=== PATIENT | male | born 1945 | race Caucasian/White ===

== ENCOUNTER 2022-07-10 13:48 | Inpatient (IN) | payer MEDICARE, OTHER ==
[2022-07-10] MEDS ORDERED: SODIUM CHLORIDE 0.9% 500 ML 500 ML IV ONE (14:38)
--- NOTE | 2022-07-10 14:48 | ED ---
General Adult HPI - General Chief complaint: Altered Mental Status Stated complaint: Mental Health,AMS Time Seen by Provider: 07/10/22 14:30 Source: patient, family, RN notes reviewed, old records reviewed Mode of arrival: ambulatory Limitations: altered mental status - History of Present Illness Initial comments: This is a 77-year-old male whose family brings the emergency department because they wanted him to get some placement or some assisted living because currently he is dangerous at home by himself he is becoming more more forgetful over the last 6 months and worse over the last few weeks. Patient had coded and full once about 3 weeks ago and since then his get from us is worse. Patient yesterday left the gas on his house and the whole house smelled like gas. Patient is forgetting to eat is also quite a bit of weight over the last year. Patient himself denies any problems but he does know he is getting more forgetful. Patient also has some urinary incontinence issues. Patient has no recent fever chills or cough patient has no recent chest pain difficult breathing shortness of breath. Patient has no nausea vomiting or diarrhea. Patient denies any abdominal pain. - Related Data Allergies Allergy/AdvReac Type Severity Reaction Status Date / Time No Known Allergies Allergy Verified 07/10/22 14:01 Review of Systems ROS Statement: Those systems with pertinent positive or pertinent negative responses have been documented in the HPI. ROS Other: All systems not noted in ROS Statement are negative. Past Medical History Past Medical History: Hypertension History of Any Multi-Drug Resistant Organisms: None Reported Additional Past Surgical History / Comment(s): right knee replacement, Past Psychological History: No Psychological Hx Reported Smoking Status: Former smoker Past Alcohol Use History: Occasional Past Drug Use History: None Reported General Exam - General Exam Comments Initial Comments: GENERAL: Patient is well-developed and well-nourished. Patient is nontoxic and well- hydrated and is in no acute distress. ENT: Neck is soft and supple. No significant lymphadenopathy is noted. Oropharynx is clear. Moist mucous membranes. Neck has full range of motion without eliciting any pain. EYES: The sclera were anicteric and conjunctiva were pink and moist. Extraocular movements were intact and pupils were equal round and reactive to light. Eyelids were unremarkable. PULMONARY: Unlabored respirations. Good breath sounds bilaterally. No audible rales rhonchi or wheezing was noted. CARDIOVASCULAR: There is a regular rate and rhythm without any murmurs gallops or rubs. ABDOMEN: Soft and nontender with normal bowel sounds. No palpable organomegaly was noted. There is no palpable pulsatile mass. SKIN: Skin is clear with no lesions or rashes and otherwise unremarkable. NEUROLOGIC: Patient is alert and oriented 2. Cranial nerves II through XII are grossly intact. Motor and sensory are also intact. Normal speech, volume and content. Symmetrical smile. MUSCULOSKELETAL: Normal extremities with adequate strength and full range of motion. No lower extremity swelling or edema. No calf tenderness. LYMPHATICS: No significant lymphadenopathy is noted PSYCHIATRIC: Normal psychiatric evaluation. Limitations: altered mental status Course Vital Signs 07/10/22 07/10/22 07/10/22 13:53 15:24 16:00 Temperature 97.9 F Pulse Rate 89 67 82 Respiratory 18 17 17 Rate Blood Pressure 158/79 118/68 129/79 O2 Sat by Pulse 98 99 99 Oximetry 07/10/22 16:59 Temperature Pulse Rate 85 Respiratory 18 Rate Blood Pressure 132/93 O2 Sat by Pulse 99 Oximetry Medical Decision Making - Medical Decision Making EKG was interpreted by myself. EKG shows sinus rhythm at 73 bpm WI interval 200 nitro's is 91 QT interval 357 QTC is 383 per patient's EKG shows no ST segment elevation or depression. Was pt. sent in by a medical professional or institution? @ -No Did you speak to anyone other than the patient for history? @ -I spoke with family members to get most of the history Did you review nursing and triage notes? @ -I agree with the nursing triage notes Were old charts reviewed? @ -None Differential Diagnosis? @ -Differential Altered Mental Status: Hypoglycemia, DKA, hypercapnia, ETOH, overdose, CO poisoning, trauma, myxedema coma, HTN encephalopathy, infection, encephalitis, psychosis, intercranial hemorrhage, hepatic encephalopathy, meningitis, CVA, this is not meant to be an all-inclusive list EKG interpreted by me (3pts min.)? @ -As above X-rays interpreted by me (1pt min.)? @ -Chest x-ray shows no acute abnormality it was interpreted by myself CT interpreted by me (1pt min.)? @ -CT of the brain was interpreted by myself did show signs of normal pressure hydrocephalus. U/S interpreted by me (1pt. min.)? @ -No What testing was considered but not performed? (CT, X-rays, U/S, labs)? Why? @ -No What meds were considered but not given? Why? @ -No Did you discuss the management of the patient with other professionals? @ -I spoke with sound physician's agreed to admit the patient to the patient wrote orders I consult neurology Did you reconcile home meds? @ -No Was smoking cessation discussed for >3mins.? @ -No Was critical care preformed (if so, how long)? @ -No Were there social determinants of health that impacted care today? How? (Homelessness, low income, unemployed, alcoholism, drug addiction, transportation, low edu. Level, literacy, decrease access to med. care, [facility], rehab)? @ -No Was there de-escalation of care discussed even if they declined? (Discuss DNR or withdrawal of care, Hospice)? @ -No What co-morbidities impacted this encounter? (DM, HTN, Smoking, COPD, CAD, Cancer, CVA, Hep., AIDS, mental health diagnosis, sleep apnea, morbid obesity)? @ -No Was patient admitted / discharged? @ -Patient will be admitted for normal pressure hydrocephalus. I spoke with sound physician's agreed to admit the patient admitted the patient I consult the neurology. Drug Therapy requiring intensive monitoring for toxicity (Heparin, Nitro, Insulin, Cardizem)? @ -No Were any procedures done? @ -No Diagnosis/symptom? @ -Normal pressure hydrocephalus Acute, or Chronic, or Acute on Chronic? @ -Acute on chronic Uncomplicated (without systemic symptoms) or Complicated (systemic symptoms)? @ -No Side effects of treatment? @ -No Exacerbation, Progression, or Severe Exacerbation] @ -No Poses a threat to life or bodily function? @ -No - Lab Data Result diagrams: 07/10/22 14:51 07/10/22 14:51 Lab Results 07/10/22 07/10/22 07/10/22 Range/Units 14:51 14:51 14:51 WBC 6.6 (3.8-10.6) k/uL RBC 4.17 L (4.30-5.90) m/uL Hgb 13.1 (13.0-17.5) gm/dL Hct 38.0 L (39.0-53.0) % MCV 91.1 (80.0-100.0) fL MCH 31.5 (25.0-35.0) pg MCHC 34.6 (31.0-37.0) g/dL RDW 12.7 (11.5-15.5) % Plt Count 204 (150-450) k/uL MPV 9.3 Neutrophils % 64 % Lymphocytes % 25 % Monocytes % 5 % Eosinophils % 3 % Basophils % 1 % Neutrophils # 4.2 (1.3-7.7) k/uL Lymphocytes # 1.7 (1.0-4.8) k/uL Monocytes # 0.3 (0-1.0) k/uL Eosinophils # 0.2 (0-0.7) k/uL Basophils # 0.1 (0-0.2) k/uL PT 10.4 (9.0-12.0) sec INR 1.0 (<1.2) APTT 23.7 (22.0-30.0) sec Sodium (137-145) mmol/L Potassium (3.5-5.1) mmol/L Chloride (98-107) mmol/L Carbon Dioxide (22-30) mmol/L Anion Gap mmol/L BUN (9-20) mg/dL Creatinine (0.66-1.25) mg/dL Est GFR (CKD-EPI)AfAm (>60 ml/min/1.73 sqM) Est GFR (CKD-EPI)NonAf (>60 ml/min/1.73 sqM) Glucose (74-99) mg/dL POC Glucose (mg/dL) (70-110) mg/dL POC Glu Supervisor Wet End ID Calcium (8.4-10.2) mg/dL Total Bilirubin (0.2-1.3) mg/dL AST (17-59) U/L ALT (4-49) U/L Alkaline Phosphatase (38-126) U/L Troponin I (0.000-0.034) ng/mL Total Protein (6.3-8.2) g/dL Albumin (3.5-5.0) g/dL Urine Color Light Yellow Urine Appearance Clear (Clear) Urine pH 5.5 (5.0-8.0) Ur Specific [place] 1.010 (1.001-1.035) Urine Protein Negative (Negative) Urine Glucose (UA) Negative (Negative) Urine Ketones Negative (Negative) Urine Blood Negative (Negative) Urine Nitrite Negative (Negative) Urine Bilirubin Negative (Negative) Urine Urobilinogen <2.0 (<2.0) mg/dL Ur Leukocyte Esterase Negative (Negative) Urine Opiates Screen Not Detected (NotDetected) Ur Oxycodone Screen Not Detected (NotDetected) Urine Methadone Screen Not Detected (NotDetected) Ur Propoxyphene Screen Not Detected (NotDetected) Ur Barbiturates Screen Not Detected (NotDetected) U Tricyclic Antidepress Not Detected (NotDetected) Ur Phencyclidine Scrn Not Detected (NotDetected) Ur Amphetamines Screen Not Detected (NotDetected) U Methamphetamines Scrn Not Detected (NotDetected) U Benzodiazepines Scrn Not Detected (NotDetected) Urine Cocaine Screen Not Detected (NotDetected) U Marijuana (THC) Screen Not Detected (NotDetected) 07/10/22 07/10/22 07/10/22 Range/Units 14:51 14:51 15:21 WBC (3.8-10.6) k/uL RBC (4.30-5.90) m/uL Hgb (13.0-17.5) gm/dL Hct (39.0-53.0) % MCV (80.0-100.0) fL MCH (25.0-35.0) pg MCHC (31.0-37.0) g/dL RDW (11.5-15.5) % Plt Count (150-450) k/uL MPV Neutrophils % % Lymphocytes % % Monocytes % % Eosinophils % % Basophils % % Neutrophils # (1.3-7.7) k/uL Lymphocytes # (1.0-4.8) k/uL Monocytes # (0-1.0) k/uL Eosinophils # (0-0.7) k/uL Basophils # (0-0.2) k/uL PT (9.0-12.0) sec INR (<1.2) APTT (22.0-30.0) sec Sodium 139 (137-145) mmol/L Potassium 4.1 (3.5-5.1) mmol/L Chloride 104 (98-107) mmol/L Carbon Dioxide 28 (22-30) mmol/L Anion Gap 7 mmol/L BUN 22 H (9-20) mg/dL Creatinine 0.83 (0.66-1.25) mg/dL Est GFR (CKD-EPI)AfAm >90 (>60 ml/min/1.73 sqM) Est GFR (CKD-EPI)NonAf 84 (>60 ml/min/1.73 sqM) Glucose 95 (74-99) mg/dL POC Glucose (mg/dL) 95 (70-110) mg/dL POC Glu Supervisor Wet End ID Cassandra Irene Calcium 9.3 (8.4-10.2) mg/dL Total Bilirubin 0.8 (0.2-1.3) mg/dL AST 33 (17-59) U/L ALT 25 (4-49) U/L Alkaline Phosphatase 86 (38-126) U/L Troponin I <0.012 (0.000-0.034) ng/mL Total Protein 6.4 (6.3-8.2) g/dL Albumin 3.8 (3.5-5.0) g/dL Urine Color Urine Appearance (Clear) Urine pH (5.0-8.0) Ur Specific [place] (1.001-1.035) Urine Protein (Negative) Urine Glucose (UA) (Negative) Urine Ketones (Negative) Urine Blood (Negative) Urine Nitrite (Negative) Urine Bilirubin (Negative) Urine Urobilinogen (<2.0) mg/dL Ur Leukocyte Esterase (Negative) Urine Opiates Screen (NotDetected) Ur Oxycodone Screen (NotDetected) Urine Methadone Screen (NotDetected) Ur Propoxyphene Screen (NotDetected) Ur Barbiturates Screen (NotDetected) U Tricyclic Antidepress (NotDetected) Ur Phencyclidine Scrn (NotDetected) Ur Amphetamines Screen (NotDetected) U Methamphetamines Scrn (NotDetected) U Benzodiazepines Scrn (NotDetected) Urine Cocaine Screen (NotDetected) U Marijuana (THC) Screen (NotDetected) Disposition Clinical Impression: Normal pressure hydrocephalus Disposition: ADMITTED IP TO THIS HOSP Referrals: Javan Silverman MD [REFERRING] - 1-2 days Time of Disposition: 17:26
[2022-07-10 15:02] LABS: Basophils # (A) 0.1 k/uL (0-0.2); Basophils % (A) 1 %; Eosinophils # (A) 0.2 k/uL (0-0.7); Eosinophils % (A) 3 %; HGB 13.1 gm/dL (13.0-17.5); Lymphocytes # (A) 1.7 k/uL (1.0-4.8); Lymphocytes % (A) 25 %; MCH 31.5 pg (25.0-35.0); MCHC 34.6 g/dL (31.0-37.0); MCV 91.1 fL (80.0-100.0); Mean Platelet Volume 9.3; Monocytes # (A) 0.3 k/uL (0-1.0); Monocytes % (A) 5 %; Neutrophils # (A) 4.2 k/uL (1.3-7.7); Neutrophils % (A) 64 %; Platelet Count 204 k/uL (150-450); RBC 4.17 m/uL (4.30-5.90); RDW 12.7 % (11.5-15.5); WBC 6.6 k/uL (3.8-10.6)
[2022-07-10 15:11] LABS: ALT 25 U/L (4-49); AST 33 U/L (17-59); African American GFR (CKD) >90 (>60 ml/min/1.73 sqM); Albumin 3.8 g/dL (3.5-5.0); Alkaline Phosphatase 86 U/L (38-126); Anion Gap 7 mmol/L; Appearance,Urine Clear (Clear); Bilirubin,Urine Negative (Negative); Blood Urea Nitrogen 22 mg/dL (9-20); Blood,Urine Negative (Negative); Calcium 9.3 mg/dL (8.4-10.2); Carbon Dioxide 28 mmol/L (22-30); Chloride 104 mmol/L (98-107); Color,Urine Light Yellow; Glucose 95 mg/dL (74-99); Glucose,Urine (UA) Negative (Negative); Ketones,Urine Negative (Negative); Leukocyte Esterase,Urine Negative (Negative); Nitrite,Urine Negative (Negative); Non-African American GFR(CKD) 84 (>60 ml/min/1.73 sqM); PH, Urine 5.5 (5.0-8.0); Potassium 4.1 mmol/L (3.5-5.1); Protein,Urine Negative (Negative); Sodium 139 mmol/L (137-145); Total Bilirubin 0.8 mg/dL (0.2-1.3); Total Protein 6.4 g/dL (6.3-8.2); Urobilinogen,Urine <2.0 mg/dL (<2.0)
--- NOTE | 2022-07-10 15:14 | XR ---
EXAMINATION TYPE: XR chest 2V DATE OF EXAM: 07/10/2022 COMPARISON: NONE TECHNIQUE: PA and lateral views submitted. HISTORY: Altered mental status FINDINGS: The lungs are clear and there is no pneumothorax, pleural effusion, or focal pneumonia. Hypertrophi c degenerative changes spine. Atherosclerotic changes aorta. Calcification along the right paratrache al line may be related to calcified. IMPRESSION: 1. No acute process. Correlate for COPD.
[2022-07-10 15:16] LABS: Partial Thromboplastin Time 23.7 sec (22.0-30.0); Prothrombin Time 10.4 sec (9.0-12.0)
[2022-07-10 15:17] LABS: Amphetamine Screen,Urine Not Detected (NotDetected); Barbiturate Screen,Urine Not Detected (NotDetected); Benzodiazepines Screen,Urine Not Detected (NotDetected); Cocaine Screen,Urine Not Detected (NotDetected); Methadone Screen, Urine Not Detected (NotDetected); Opiate Screen,Urine Not Detected (NotDetected); Oxycodone Screen, Urine Not Detected (NotDetected); Phencyclidine Screen,Urine Not Detected (NotDetected); Tricyclic Antidepressant,Urine Not Detected (NotDetected); Urn Cannabinoid Scrn Not Detected (NotDetected)
[2022-07-10 15:22] LABS: Glucose,Whole Blood 95 mg/dL (70-110)
--- NOTE | 2022-07-10 15:27 | CT ---
EXAMINATION TYPE: CT brain wo con DATE OF EXAM: 07/10/2022 HISTORY: AMS, confusion, memory loss CT DLP: 1158.4 mGycm. Automated Exposure Control for Dose Reduction was Utilized. TECHNIQUE: CT scan of the head is performed without contrast. COMPARISON: None. FINDINGS: There is no acute intracranial hemorrhage or midline shift identified. There is mild to m oderate diffuse ventricular and sulcal prominence with ventricular prominence slightly out of proport ion to the degree of sulcal effacement. There is mild low-attenuation in the periventricular white m atter consistent with chronic small vessel ischemic change. Nasal septum is deviated to right of mid line. Scleral calcification medial right globe is seen. Paranasal sinuses are clear. IMPRESSION: No acute intracranial hemorrhage or midline shift. There is mild to moderate diffuse ag e-related cerebral atrophy and mild chronic small vessel ischemic change noted. Possible mild underl rogelio normal pressure hydrocephalus. Correlate clinically. Correlation with old outside CT or MRI woul d be beneficial to assess for change.
[2022-07-10] MEDS ORDERED: SODIUM CHLORIDE 0.9% 1,000 ML IV ONE (17:27)
[2022-07-10] MEDS ORDERED: CALCIUM CARBONATE 500 MG CHEWABLE PO PRN (19:15)
[2022-07-10] MEDS ORDERED: NALOXONE 0.4 MG/ML 1 ML VIAL IV PRN (19:15)
[2022-07-10] MEDS ORDERED: ONDANSETRON 4 MG/2 ML VIAL IVP PRN (19:15)
[2022-07-10] MEDS ORDERED: MELATONIN 3 MG TABLET PO PRN (19:15)
--- NOTE | 2022-07-10 19:23 | P.HPIM ---
History of Present Illness H&P Date: 07/10/22 Patient is a 69-year-old male with PMH of hypertension, family history of Alzheimer's disease that presents the ED after being brought by his family for inability to take care of his ADLs and IADLs. Family states that patient lives alone. Over the past month his mentation has been getting worse. Apparently, he had COVID-19 3 weeks ago and has been progressively deteriorating with regard to his mentation since then. Family noted that patient had left the gas on in his house. Patient also refuses to eat 1 by himself. His girlfriend has mentioned that he had 2 falls recently without head trauma. Family also reports urinary incontinence. Patient himself has no complaints. He denies any headache, lower extremity edema, nausea or vomiting, fever or chills, cough, chest pain, shortness of breath, palpitations, changes in urination or bowel habits. No changes in appetite or weight. He denies any dizziness, numbness/weakness/tingling of the extremities. In the ED, his vital signs are stable. CBC was relatively benign. INR was 1. CMP showed BUN of 22. Initial troponin was negative. Urinalysis negative. UDS negative. CT brain showed mild to moderate age-related cerebral atrophy, possible mild underlying normal pressure hydrocephalus. Chest x-ray was negative. Patient is admitted for placement. Pertinent positives and negatives as discussed in HPI, a complete review of systems was performed and all other systems are negative. General: non toxic, no distress, appears at stated age Derm: warm, dry Head: atraumatic, normocephalic, symmetric Eyes: EOMI, no lid lag, anicteric sclera Mouth: no lip lesion, mucus membranes moist Cardiovascular: S1S2 reg, no murmur, positive posterior tibial pulse bilateral, Lungs: CTA bilateral, no rhonchi, no rales , no accessory muscle use Abdominal: soft, nontender to palpation, no guarding, no appreciable organomegaly Ext: no gross muscle atrophy, no edema, no contractures Neuro: CN II-XI grossly intact, no focal neuro deficits Psych: Pleasantly confused #Failure to thrive #Dementia #Normal pressure hydrocephalus PT and OT will be consulted for further management of this patient. student services rep and case management on board. Neurology consult. Fall precautions. Advanced neurochecks. Check reversible labs - TSH, B12, Folic acid Chronic conditions: #Hypertension BP 122/66. Restart Lisinopril. DVT prophylaxis: SCDs Discussed with: Patient, ED physician, family Anticipated discharge: 1-[address]: [facility] vs assisted living A total of 35 minutes was spent on the care of this complex patient more than 50% of the time was spent in counseling and care coordination. Patient's son is the decision maker. Patient would like to be NO CODE. Past Medical History Past Medical History: Hypertension History of Any Multi-Drug Resistant Organisms: None Reported Additional Past Surgical History / Comment(s): right knee replacement, Past Psychological History: No Psychological Hx Reported Smoking Status: Former smoker Past Alcohol Use History: Occasional Past Drug Use History: None Reported Medications and Allergies Home Medications Medication Instructions Recorded Confirmed Type Aspirin EC [Ecotrin Low Dose] 81 mg PO DAILY 07/10/22 07/10/22 History Bromfenac Sodium [Prolensa] 1 drop LEFT EYE DIRECTED 07/10/22 07/10/22 History Cholecalciferol [Vitamin D3 (25 25 mcg PO DAILY 07/10/22 07/10/22 History Mcg = 1000 Iu)] Ofloxacin 0.3% Ophth Soln [Ocuflox 1 drop LEFT EYE DIRECTED 07/10/22 07/10/22 History Ophth Soln] lisinopriL [Zestril] 20 mg PO DAILY 07/10/22 07/10/22 History Allergies Allergy/AdvReac Type Severity Reaction Status Date / Time No Known Allergies Allergy Verified 07/10/22 17:17 Physical Exam Vitals: Vital Signs Temp Pulse Resp BP Pulse Ox 07/10/22 18:20 81 17 122/66 98 07/10/22 16:59 85 18 132/93 99 07/10/22 16:00 82 17 129/79 99 07/10/22 15:24 67 17 118/68 99 07/10/22 13:53 97.9 F 89 18 158/79 98 Intake and Output 07/10/22 07/10/22 07/10/22 06:59 14:59 22:59 Other: Weight 72.575 kg Results CBC & Chem 7: 07/10/22 14:51 07/10/22 14:51 Labs: Abnormal Lab Results - Last 24 Hours (Table) 07/10/22 07/10/22 Range/Units 14:51 14:51 RBC 4.17 L (4.30-5.90) m/uL Hct 38.0 L (39.0-53.0) % BUN 22 H (9-20) mg/dL
[2022-07-11] MEDS ORDERED: LORazepam 2 MG/ML INJ IV STA (03:55)
[2022-07-11] MEDS ORDERED: QUEtiapine 25 MG TAB PO ONE (04:00)
[2022-07-11 08:36] LABS: Basophils # (A) 0.06 X 10*3/uL (0.00-0.10); Basophils % (A) 0.9 %; Eosinophils # (A) 0.46 X 10*3/uL (0.04-0.35); HCT 33.3 % (39.6-50.0); HGB 11.2 g/dL (13.0-17.0); Immature Grans, Automated 0.2 %; Lymphocytes # (A) 2.44 X 10*3/uL (0.90-5.00); Lymphocytes % (A) 36.9 %; MCH 31.1 pg (27.0-32.0); MCHC 33.6 g/dL (32.0-37.0); MCV 92.5 fL (80.0-97.0); Mean Platelet Volume 11.8 fL (9.5-12.2); Monocytes # (A) 0.44 X 10*3/uL (0.20-1.00); Monocytes % (A) 6.7 %; NRBC Per 100 WBC 0 /100 WBCS (0.0-0.0); Neutrophils % (A) 48.3 %; Platelet Count 191 X 10*3/uL (140-440); RDW 13.1 % (11.5-14.5); WBC 6.61 X 10*3/uL (4.50-10.00)
[2022-07-11] MEDS: lisinopriL 20 MG TAB PO SCH (08:38)
[2022-07-11] MEDS: ASPIRIN 81 MG PO SCH (08:38)
[2022-07-11] MEDS: CHOLECALCIFEROL 25 MCG (1000 IU) TABLET PO SCH (08:38)
[2022-07-11 09:23] LABS: African American GFR (CKD) 99.2 (60.0-200.0); Blood Urea Nitrogen 23.2 mg/dL (9.0-27.0); Carbon Dioxide 25.8 mmol/L (20.0-27.5); Chloride 108 mmol/L (96-109); Glucose 100 mg/dL (70-110); Non-African American GFR(CKD) 85.6 (60.0-200.0); Potassium 4.1 mmol/L (3.5-5.5); Sodium 142 mmol/L (135-145)
[2022-07-11 10:07] LABS: Vitamin B12 <150.0 pg/mL (200.0-944.0)
--- NOTE | 2022-07-11 12:21 | P.CNNES ---
History of Present Illness Consult date: 07/11/22 Requesting physician: Paul Conway Reason for Consult: normal pressure hydrocephalus History of Present Illness: This is a 77-year-old gentleman presented emergency department because of worsening confusion. Most of the history is obtained from the patient's family members (daughter and son are at bedside). 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 They stated that the patient had 2 incidents of turn on the gas and leaving it on and the house smelled like gas in which they had to evacuate him. Seems that he had a recent episode of leaving the gas on in his house and he had an episode in the around time of 2021. Patient is a having more over short-term memory loss. He is also having epi sodes of falls and the urinary incontinence for the last 1-3 month period. He shuffles when he walks. No focal weakness. She denies of any headache. Patient refuses to use a walker or cane. Patient resides by himself. Patient has hearing aids and he has lost that for at least the past 1 week. Also patient has cataract of both eyes and he needs surgery. No history of seizures. Patient socially drinks alcohol. Denies tobacco use or any illicit drug use. Some of the workup during this hospital visit consisted of: Vitamin B12 was less than 150 which is deficient. Normal is 200 08/16/1944. Serum folate is 8.20 and a normal supposed to be 4.4-31 TSH is 2.60. Ammonia is less than 9. Sodium, glucose, calcium, AST and ALT is within normal limits. Urinalysis is negative for urinary tract infection Urine drug screen is not detected CT of the head is reported as no acute intracranial hemorrhage or midline shift. There is mild to moderate diffuse age-related cerebral atrophy and mild chronic small vessel ischemic changes noted. Possible mild underlying normal pressure hydrocephalus. Correlate clinically. Correlation with old outside CT or MRI would be beneficial to assess for change. I personally reviewed the CT of the head and I agree with the finding. I feel the patient does have generalized atrophy but I feel the ventricles seems the mildly dilated at least in severity compared to the atrophy. Review of Systems Review of system: The 12 point system was reviewed and apparent positive and negative per HPI. Past Medical History Past Medical History: Hypertension Additional Past Medical History / Comment(s): Increased forgetfulness, urinary incontinence, covid and influenza about 3-5 weeks ago. History of Any Multi-Drug Resistant Organisms: None Reported Past Surgical History: Joint Replacement Additional Past Surgical History / Comment(s): right knee replacement, Past Anesthesia/Blood Transfusion Reactions: No Reported Reaction Smoking Status: Never smoker - Past Family History Mother Family Medical History: Dementia Father Family Medical History: Dementia Medications and Allergies Home Medications Medication Instructions Recorded Confirmed Type Aspirin EC [Ecotrin Low Dose] 81 mg PO DAILY 07/10/22 07/10/22 History Bromfenac Sodium [Prolensa] 1 drop LEFT EYE DIRECTED 07/10/22 07/10/22 History Cholecalciferol [Vitamin D3 (25 25 mcg PO DAILY 07/10/22 07/10/22 History Mcg = 1000 Iu)] Ofloxacin 0.3% Ophth Soln [Ocuflox 1 drop LEFT EYE DIRECTED 07/10/22 07/10/22 History Ophth Soln] lisinopriL [Zestril] 20 mg PO DAILY 07/10/22 07/10/22 History Allergies Allergy/AdvReac Type Severity Reaction Status Date / Time No Known Allergies Allergy Verified 07/10/22 17:17 Physical Examination - Vital Signs Vital Signs: Vital Signs Temp Pulse Resp BP Pulse Ox 07/11/22 08:00 95 18 165/95 99 07/11/22 04:41 71 18 95 07/11/22 02:34 73 16 129/80 97 07/11/22 00:13 85 18 135/84 98 07/10/22 21:28 98.3 F 91 18 114/79 97 07/10/22 18:20 81 17 122/66 98 07/10/22 16:59 85 18 132/93 99 07/10/22 16:00 82 17 129/79 99 07/10/22 15:24 67 17 118/68 99 07/10/22 13:53 97.9 F 89 18 158/79 98 Intake and Output 07/10/22 07/11/22 07/11/22 22:59 06:59 14:59 Other: Weight 72.575 kg GENERAL: The patient is lying in bed and is not in acute distress. CHEST: The heart rate is regular rate rhythm. No murmurs to auscultation. LUNG: Clear to auscultation bilaterally no wheezing noted throughout. Not labored breathing. ABDOMEN/GI: Bowel sounds present in all 4 quadrants. No tenderness to palpation throughout. NEUROLOGICAL: Higher mental function: The patient is awake, alert, oriented to self, place and time. Patient is following simple commands. No aphasia and no neglect. Cranial nerves: The pupils are round, equal and reactive to light and accommodation. Visual thorpe are full to confrontation throughout. Extraocular movement is intact no nystagmus is noted. Facial sensation is normal to touch throughout. The facial strength is normal throughout. Hearing is severely decrease bilaterally to hand rub (does not have hearing aids). Tongue is midline and moved [id number] without any difficulty. No dysarthria is noted. Shoulder shrug is normal bilaterally. Motor: Gait is minimally walking slow but able to walk indepently and not swaying one way or other. No shuffling or wide base gait note. The strength is 5 over 5 throughout. Normal tone and bulk. Cerebellum: Normal finger to nose bilaterally. Sensation: Sensation is normal to touch throughout. Reflexes (right/left): 2+ throughout. Plantars are mute bilaterally. 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 Also has vitamin B12 deficiency that causes dementia. Vitamin B12 deficiency Bilateral Cataract Severe hearing loss and has hearing aids Plan: For his vitamin B12 deficiency, placed on vitamin B12 a thousand micrograms IM for 3 days and after that by mouth. Recommend reevaluating vitamin B12 level within 2-3 weeks I consulted anesthesiology team for large volume tap for likely suspicion of normal pressure hydrocephalus and then we'll assess his gait and function afterwards. If he does show improvement recommend [employer] shunt as an outpatient and to be seen by neurosurgeon for that I ordered MRI of the brain with and without to rule out any intracranial mass/lesion Ordered the hemoglobin A1c to assess if he is diabetic which can lead to perform neuropathy and falls as well as. Recommend a detailed neuropsych evaluation for his memory as an outpatient PT and OT are consulted Patient was counseled on using a cane or walker as outpatient (since he refuses to use it and has falls). We'll defer the rest of the medical management to primary team Patient to move forward with his neurology evaluation as outpatient with Dr. Fernando on 07/27/22 Plan was discussed with the patient and his family members (daughter and son). Thank you for the consultation I have spent a total of 35 minutes for his care. Going over history, reviewed labs and imaging and went over imaging with patient and family members as well plan. Time with Patient: Greater than 30
[2022-07-11] MEDS: CYANOCOBALAMIN 1,000 MCG/ML 1 ML VIAL IM SCH (13:05)
[2022-07-11] MEDS ORDERED: LORazepam 2 MG/ML INJ IV PRN (14:27)
--- NOTE | 2022-07-11 15:14 | P.PN ---
Subjective Progress Note Date: 07/11/22 Patient is a 69-year-old male with PMH of hypertension, family history of Alzheimer's disease that presents the ED after being brought by his family for inability to take care of his ADLs and IADLs. Family states that patient lives alone. Over the past month his mentation has been getting worse. Apparently, he had COVID-19 3 weeks ago and has been progressively deteriorating with regard to his mentation since then. Family noted that patient had left the gas on in his house. Patient also refuses to eat 1 by himself. His girlfriend has mentioned that he had 2 falls recently without head trauma. Family also reports urinary incontinence. Patient himself has no complaints. He denies any headac he, lower extremity edema, nausea or vomiting, fever or chills, cough, chest pain, shortness of breath, palpitations, changes in urination or bowel habits. No changes in appetite or weight. He denies any dizziness, numbness/weakness/tingling of the extremities. In the ED, his vital signs are stable. CBC was relatively benign. INR was 1. CMP showed BUN of 22. Initial troponin was negative. Urinalysis negative. UDS negative. CT brain showed mild to moderate age-related cerebral atrophy, possible mild underlying normal pressure hydrocephalus. Chest x-ray was negative. Patient is admitted for placement. Patient was seen and examined. Seroquel and Ativan given for agitation yesterday . Son at bedside. Patient denies any complaints. General: non toxic, no distress, appears at stated age Derm: warm, dry Head: atraumatic, normocephalic, symmetric Eyes: EOMI, no lid lag, anicteric sclera Mouth: no lip lesion, mucus membranes moist Cardiovascular: S1S2 reg, no murmur Lungs: CTA bilateral, no rhonchi, no rales , no accessory muscle use Ext: no gross muscle atrophy, no edema, no contractures Neuro: no focal neuro deficits Psych: Pleasantly confused #Failure to thrive #Dementia #Normal pressure hydrocephalus #B12 deficiency PT and OT will be consulted for further management of this patient. director agricultural services and case management on board. Neurology recommendations appreciated, plans for MRI brain, anesthesia consult for large volume LP. Fall precautions. Advanced neurochecks. TSH and Folic acid within normal limits. Agree with Vitamin B12 replacement ordered by Neurology. Chronic conditions: #Hypertension BP 103/65. Restart Lisinopril. Objective - Vital Signs Vital signs: Vital Signs Temp 97.7 F 07/11/22 13:03 Pulse 87 07/11/22 13:03 Resp 16 07/11/22 13:03 BP 103/65 07/11/22 13:03 Pulse Ox 97 07/11/22 13:03 FiO2 Intake & Output 07/10/22 07/11/22 07/11/22 18:59 06:59 18:59 Weight 72.575 kg 72.575 kg - Labs CBC & Chem 7: 07/11/22 05:32 07/11/22 05:32 Labs: Abnormal Lab Results - Last 24 Hours (Table) 07/11/22 07/11/22 Range/Units 05:32 05:32 RBC 3.60 L (4.40-5.60) X 10*6/uL Hgb 11.2 L (13.0-17.0) g/dL Hct 33.3 L (39.6-50.0) % Eosinophils # 0.46 H (0.04-0.35) X 10*3/uL Anion Gap 8.20 L (10.00-18.00) mmol/L BUN/Creatinine Ratio 29.00 H (12.00-20.00) Ratio Vitamin B12 <150.0 L (200.0-944.0) pg/mL
[2022-07-11] MEDS ORDERED: QUEtiapine 25 MG TAB PO PRN (17:21)
[2022-07-11] MEDS: LORazepam 2 MG/ML INJ IV PRN (17:32)
--- NOTE | 2022-07-11 20:36 | XR ---
EXAMINATION TYPE: XR abdomen 2V DATE OF EXAM: 07/11/2022 CLINICAL HISTORY: Pre-MRI study. TECHNIQUE: Supine and upright views of the abdomen are obtained. COMPARISON: None. FINDINGS: Scattered gas is seen in non-distended small bowel loops. Gas and fecal material is seen in non-distended colon. Moderate fecal prominence in the rectum. Mild diffuse colonic fecal prominenc e. There is no visceromegaly, pneumoperitoneum, or abnormal calcification appreciated. The lung bas es are clear. Disc space narrowing and spurring in the lower lumbar spine. IMPRESSION: Overall nonobstructive bowel gas pattern. No suspicious metallic foreign body identified to prevent MRI study.
[2022-07-12] MEDS: lisinopriL 20 MG TAB PO SCH (08:29)
[2022-07-12] MEDS: CHOLECALCIFEROL 25 MCG (1000 IU) TABLET PO SCH (08:29)
[2022-07-12] MEDS: LORazepam 2 MG/ML INJ IV PRN (08:56)
[2022-07-12] MEDS: LACTATED RINGERS 1,000 ML IV SCH (10:10)
[2022-07-12 11:19] VITALS: BMI 22.3
--- NOTE | 2022-07-12 11:21 | P.PCN ---
Date of Procedure: 07/12/22 Description of Procedure: Procedure: 1. Lumbar puncture for CSF collection PREOPERATIVE DIAGNOSIS: Altered mental status, and normal pressure hydrocephalus POSTOPERATIVE DIAGNOSIS: Altered mental status, and normal pressure hydrocephalus SURGEON: Alina Ibarra ANESTHESIA: Local with 1% lidocaine, and IV sedation : None EBL: None. Specimen removed: 30 mL of CSF collected in 4 tubes PROCEDURE INDICATION: The patient had history of normal pressure hydrocephalus with altered mental status. Consulted for lumbar puncture for 30 mL of CSF collection. PROCEDURE DESCRIPTION: The patient was seen and identified. Risks, benefits, complications, and alternatives were discussed with the patient. The patient agreed to proceed with the procedure and signed the consent, and vital signs were stable. Patient was taken to the procedure area, and time out was completed. The patient was placed in left lateral position on procedure. . The lumbosacral area was prepped and draped in the usual sterile fashion. Critical pause was taken. Vital signs were closely monitored during the procedure. Posterior superior iliac crest landmarks was identified . The midline lumbar space also identified. Approximately at the level of L4-L5 interspinous space, skin and deeper tissues were localized with 3 mL of 1% lidocaine. Using a 22 gauge 3.5 spinal needle entered into subarachnoid space, with 1 attempt. Clear CSF came out of the spinal needle. 7-8 mL of CSF fluid collected in each tube 4. A total of 30 mL CSF collected . Needle was withdrawn intact, skin was cleansed, and bandages were applied. COMPLICATIONS: None. DISPOSITION / PLANS: The patient was placed in a supine position and transferred to his room in a stable condition for observation. The patient was reexamined prior transfer to his room..
[2022-07-12] MEDS: ASPIRIN 81 MG PO SCH (11:53)
[2022-07-12 11:57] LABS: Glucose,Whole Blood 103 mg/dL (70-110)
--- NOTE | 2022-07-12 16:13 | P.PN ---
Subjective Progress Note Date: 07/12/21 The patient is seen at bedside and it seems he had large volume CSF today (30cc) by anesthesiology team. But upon evaluating the patient later today, he was agitated and confused. According to the nurse, he has be agitated since overnight and has received benzo ordered by primary team. He has been attempting to get out of bed and aggressive. He has been picking in the air stating he is cleaning the dust. Objective - Vital Signs Vital signs: Vital Signs Temp 97 F L 07/12/22 12:33 Pulse 91 07/12/22 12:33 Resp 16 07/12/22 12:33 BP 128/80 07/12/22 12:33 Pulse Ox 97 07/12/22 12:33 FiO2 Intake & Output 07/11/22 07/12/22 07/12/22 18:59 06:59 18:59 Intake Total 450 Output Total 900 500 Balance -900 -500 450 Weight 72.575 kg 72.575 kg Intake: IV 450 Output: Urine 900 500 Other: Voiding Method External Catheter # Voids 1 3 - Exam GENERAL: The patient is lying in bed and is not in acute distress. He is chacorta tated. NEUROLOGICAL: Limited because of his condition. Higher mental function: The patient is awake, alert, oriented to self only. He was picking air with hands. He could not name his girlfriend's name and called her by his ex-'s name. Patient is following few simple commands. Cranial nerves: The pupils are round, equal and reactive to light. His is tracking throughout the room. No facial weakness. No dysarthria. Motor: The strength is hard to assess individual muscles. Is lifting all extremities above gravity. Cerebellum: Unable to assess. Sensation: Unable to assess. Some of the workup during this hospital visit consisted of: Vitamin B12 was less than 150 which is deficient. Normal is 200 08/16/1944. Serum folate is 8.20 and a normal supposed to be 4.4-31 TSH is 2.60. Ammonia is less than 9. Sodium, glucose, calcium, AST and ALT is within normal limits. Urinalysis is negative for urinary tract infection Urine drug screen is not detected CT of the head is reported as no acute intracranial hemorrhage or midline shift. There is mild to moderate diffuse age-related cerebral atrophy and mild chronic small vessel ischemic changes noted. Possible mild underlying normal pressure hydrocephalus. Correlate clinically. Correlation with old outside CT or MRI would be beneficial to assess for change. I personally reviewed the CT of the head and I agree with the finding. I feel the patient does have generalized atrophy but I feel the ventricles seems the mildly dilated at least in severity compared to the atrophy. 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 Also has vitamin B12 deficiency that causes dementia. Delerium due to hospital induced and medication (benzo) can aggravate in elderly Vitamin B12 deficiency Bilateral Cataract Severe hearing loss and has hearing aids Plan: For his vitamin B12 deficiency, placed on vitamin B12 a thousand micrograms IM for total of 3 days (today is day 2) and after that by mouth. Recommend reevaluating vitamin B12 level within 2-3 weeks He had large volume tap (30cc) but is severely delerious and could not examine him properly. I recommend Normal pressure hydrocephalus work-up as outpatient. Please avoid benzo as much as possible since can cause worsening agitation in elderly. I started him on Seroquel 25mg qhs and if needed can be on 50mg qhs for psychosis/agitation. Pending MRI Brain and to rule out any intracranial mass/lesion and scheduled tomorrow, but if unable to be done because of his cooperation then can be co nsidered as outpatient. Ordered routine EEG for his confusion. Recommend a detailed neuropsych evaluation for his memory as an outpatient PT and OT are consulted Patient was counseled on using a cane or walker as outpatient (since he refuses to use it and has falls). We'll defer the rest of the medical management to primary team Patient to move forward with his neurology evaluation as outpatient with Dr. Fernando on 07/27/22 Plan was discussed with his family members (daughter) and girlfriend who are at bedside. Time with Patient: Less than 30
--- NOTE | 2022-07-12 17:17 | P.PN ---
Subjective Progress Note Date: 07/12/22 Patient is a 69-year-old male with PMH of hypertension, family history of Alzheimer's disease that presents the ED after being brought by his family for inability to take care of his ADLs and IADLs. Family states that patient lives alone. Over the past month his mentation has been getting worse. Apparently, he had COVID-19 3 weeks ago and has been progressively deteriorating with regard to his mentation since then. Family noted that patient had left the gas on in his house. Patient also refuses to eat 1 by himself. His girlfriend has mentioned that he had 2 falls recently without head trauma. Family also reports urinary incontinence. Patient himself has no complaints. He denies any headac he, lower extremity edema, nausea or vomiting, fever or chills, cough, chest pain, shortness of breath, palpitations, changes in urination or bowel habits. No changes in appetite or weight. He denies any dizziness, numbness/weakness/tingling of the extremities. In the ED, his vital signs are stable. CBC was relatively benign. INR was 1. CMP showed BUN of 22. Initial troponin was negative. Urinalysis negative. UDS negative. CT brain showed mild to moderate age-related cerebral atrophy, possible mild underlying normal pressure hydrocephalus. Chest x-ray was negative. Patient is admitted for placement. Patient was seen and examined. Seroquel and Ativan given for agitation yesterday . Patient appears more agitated than yesterday. LP performed today. General: non toxic, agitatated, appears at stated age Derm: warm, dry Head: atraumatic, normocephalic, symmetric Eyes: EOMI, no lid lag, anicteric sclera Mouth: no lip lesion, mucus membranes moist Cardiovascular: S1S2 reg, no murmur Lungs: CTA bilateral, no rhonchi, no rales , no accessory muscle use Ext: no gross muscle atrophy, no edema, no contractures Neuro: no focal neuro deficits Psych: Confused and agitated #Failure to thrive #Dementia #Normal pressure hydrocephalus #B12 deficiency PT and OT will be consulted for further management of this patient. financial services education consultant and case management on board. Unable to get MRI brain due to mentation. Neurology recommendations appreciated, plans for MRI brain, anesthesia consult for large volume LP (which was done today). Fall precautions. Advanced neurochecks. TSH and Folic acid within normal limits. Agree with Vitamin B12 replacement ordered by Neurology. We will discontinue Ativan as it could be worsening his dementia. Continue Seroquel QHS. Sitter ordered for redirection. Chronic conditions: #Hypertension BP 128/80. Continue Lisinopril. Case discussed extensively with family regarding placement of the patient. They are looking into it. Patient is unsafe for discharge home. Objective - Vital Signs Vital signs: Vital Signs Temp 97 F L 07/12/22 12:33 Pulse 91 07/12/22 12:33 Resp 16 07/12/22 12:33 BP 128/80 07/12/22 12:33 Pulse Ox 97 07/12/22 12:33 FiO2 Intake & Output 07/11/22 07/12/22 07/12/22 18:59 06:59 18:59 Intake Total 450 Output Total 900 500 Balance -900 -500 450 Weight 72.575 kg 72.575 kg Intake: IV 450 Output: Urine 900 500 Other: Voiding Method External Catheter # Voids 1 3 - Labs CBC & Chem 7: 07/11/22 05:32 07/11/22 05:32
[2022-07-12] MEDS: QUEtiapine 25 MG TAB PO SCH (20:59)
[2022-07-13] MEDS: ASPIRIN 81 MG PO SCH (10:48)
[2022-07-13] MEDS: lisinopriL 20 MG TAB PO SCH (10:48)
[2022-07-13] MEDS: CHOLECALCIFEROL 25 MCG (1000 IU) TABLET PO SCH (10:48)
[2022-07-13] MEDS: CYANOCOBALAMIN 1,000 MCG/ML 1 ML VIAL IM SCH (10:48)
--- NOTE | 2022-07-13 10:52 | MR ---
EXAMINATION TYPE: MR brain wo con DATE OF EXAM: 07/13/2022 COMPARISON: CT 07/10/2022 HISTORY: Altered mental status CONTRAST: Performed utilizing 0 mL intravenous Gadavist gadolinium contrast. TECHNIQUE: Multiplanar, multiecho imaging on a 3.0 Ade magnet is performed through the brain. Stud y is performed within 24 hours of arrival to the hospital. The craniovertebral junction is normal. The pituitary is not well visualized. Diffusion-weighted imaging is performed. No abnormal hyperintensity is present to suggest an acute i ntracranial infarct or acute ischemic change. There is mild periventricular white matter hyperintensity. Microvascular ischemic change could be con sidered. Punctate hyper intensities are within the gutierrez radiata bilaterally. These are nonspecific and may be chronic white matter ischemic changes. Ventricles and sulci are very prominent for the patient age. No CSF flow void through the cerebral aq ueduct is evident. There is some mild rounding of the temporal horns. Normal pressure hydrocephalus i s not entirely excluded. IMPRESSIONS: 1. Ventricular prominence favors atrophy, however, consider normal pressure hydrocephalus. 2. Mild chronic appearing deep white matter changes.
[2022-07-13] MEDS: LACTATED RINGERS 1,000 ML IV SCH (11:00)
--- NOTE | 2022-07-13 15:11 | P.PN ---
Subjective Progress Note Date: 07/13/22 Patient is a 69-year-old male with PMH of hypertension, family history of Alzheimer's disease that presents the ED after being brought by his family for inability to take care of his ADLs and IADLs. Family states that patient lives alone. Over the past month his mentation has been getting worse. Apparently, he had COVID-19 3 weeks ago and has been progressively deteriorating with regard to his mentation since then. Family noted that patient had left the gas on in his house. Patient also refuses to eat 1 by himself. His girlfriend has mentioned that he had 2 falls recently without head trauma. Family also reports urinary incontinence. Patient himself has no complaints. He denies any headac he, lower extremity edema, nausea or vomiting, fever or chills, cough, chest pain, shortness of breath, palpitations, changes in urination or bowel habits. No changes in appetite or weight. He denies any dizziness, numbness/weakness/tingling of the extremities. In the ED, his vital signs are stable. CBC was relatively benign. INR was 1. CMP showed BUN of 22. Initial troponin was negative. Urinalysis negative. UDS negative. CT brain showed mild to moderate age-related cerebral atrophy, possible mild underlying normal pressure hydrocephalus. Chest x-ray was negative. Patient is admitted for placement. Patient was seen and examined. Patients mentation has significantly improved tod ay. Ativan was discontinued yesterday. He reports no complaints. Discussed with multiple family members in the patient room. General: non toxic, agitatated, appears at stated age Derm: warm, dry Head: atraumatic, normocephalic, symmetric Eyes: EOMI, no lid lag, anicteric sclera Mouth: no lip lesion, mucus membranes moist Cardiovascular: S1S2 reg, no murmur Lungs: CTA bilateral, no rhonchi, no rales , no accessory muscle use Ext: no gross muscle atrophy, no edema, no contractures Neuro: no focal neuro deficits Psych: Confused and agitated #Failure to thrive #Dementia #Normal pressure hydrocephalus #B12 deficiency PT and OT will be consulted for further management of this patient. manager support services and case management on board. MR brain shows ventricular prominence favoring atrophy, consider NPH. Neurology recommendations appreciated. Status post high-volume LP Fall precautions. Advanced neurochecks. TSH and Folic acid within normal limits. Agree with Vitamin B12 replacement ordered by Neurology. We will discontinue Ativan as it could be worsening his dementia. Continue Seroquel QHS. Sitter ordered for redirection. Chronic conditions: #Hypertension BP 124/70 Continue Lisinopril. Case discussed extensively with family regarding placement of the patient. Plans for SNF with insurance authorization. Patient is unsafe for discharge home. Objective - Vital Signs Vital signs: Vital Signs Temp 98.5 F 07/13/22 12:50 Pulse 50 L 07/13/22 12:50 Resp 17 07/13/22 12:50 BP 124/79 07/13/22 12:50 Pulse Ox 97 07/13/22 12:50 FiO2 Intake & Output 07/12/22 07/13/22 07/13/22 18:59 06:59 18:59 Intake Total 450 Balance 450 Weight 72.575 kg Intake: IV 450 Other: Voiding Method External Catheter External Catheter # Voids 3 3 1 - Labs CBC & Chem 7: 07/11/22 05:32 07/11/22 05:32
[2022-07-13] MEDS: KETOROLAC 15 MG/ML 1 ML VIAL IVP SCH (15:55)
--- NOTE | 2022-07-13 16:30 | P.PN ---
Subjective Progress Note Date: 07/13/22 The patient seen at bedside and according to the nursing staff he is doing much better today compared to yesterday. He is more cooperative and less agitated. Patient stated that he is doing well. Objective - Vital Signs Vital signs: Vital Signs Temp 98.5 F 07/13/22 12:50 Pulse 50 L 07/13/22 12:50 Resp 17 07/13/22 12:50 BP 124/79 07/13/22 12:50 Pulse Ox 97 07/13/22 12:50 FiO2 Intake & Output 07/12/22 07/13/22 07/13/22 18:59 06:59 18:59 Intake Total 450 Balance 450 Weight 72.575 kg Intake: IV 450 Other: Voiding Method External Catheter External Catheter # Voids 3 3 1 - Exam GENERAL: The patient is lying in bed and is not in acute distress. NEUROLOGICAL: Higher mental function: The patient was sleepy but was awakeable to voice. Is oriented to self, place and time. He is following simple commands. No aphasia and no neglect. Cranial nerves: The pupils are round, equal and reactive to light. Visual thorpe are full to confrontation throughout. Extraocular movement is intact no nystagmus is noted. The facial strength is normal throughout. No dysarthria is noted. Motor: Gait is deferred since not cooperative for it. The strength is lifting all extremities above gravity without focality. Normal tone and bulk. Cerebellum: Normal finger to nose bilaterally. Sensation: Sensation is normal to touch throughout. Reflexes (right/left): 2+ throughout. Plantars are mute bilaterally. Some of the workup during this hospital visit consisted of: Vitamin B12 was less than 150 which is deficient. Normal is 200 08/16/1944. Serum folate is 8.20 and a normal supposed to be 4.4-31 Ammonia level is less than 9 TSH is 2.60. Ammonia is less than 9. Sodium, glucose, calcium, AST and ALT is within normal limits. Urinalysis is negative for urinary tract infection Urine drug screen is not detected CT of the head is reported as no acute intracranial hemorrhage or midline shift. There is mild to moderate diffuse age-related cerebral atrophy and mild chronic small vessel ischemic changes noted. Possible mild underlying normal pressure hydrocephalus. Correlate clinically. Correlation with old outside CT or MRI would be beneficial to assess for change. I personally reviewed the CT of the head and I agree with the finding. I feel the patient does have generalized atrophy but I feel the ventricles seems the mildly dilated at least in severity compared to the atrophy. MRI the brain is reported as ventricular prominence favors atrophy however consider no pressure hydrocephalus. Mild chronic appearing deep white matter changes. - Labs CBC & Chem 7: 07/11/22 05:32 07/11/22 05:32 Assessment and Plan Assessment: Probable normal pressure hydrocephalus from clinical presentation (gait disturbance, memory loss and urinary incontinence and symptoms started at least 6 months with memory loss, falls) and radiographically appears more dilated ventricles compared to atrophy suggestive of NPH Cognitive impairement/dementia due to above. Also has vitamin B12 deficiency that causes dementia. Delirium due to hospital induced and medication (benzo) can aggravate in elderly---improved Vitamin B12 deficiency Bilateral Cataract Severe hearing loss and has hearing aids Plan: For his vitamin B12 deficiency, placed on vitamin B12 a thousand micrograms IM for total of 3 days (today is day 3) and after that by mouth. Recommend reevaluating vitamin B12 level within 2-3 weeks He had large volume tap (30cc) but is uncooperative for gait and could not examine him properly. Recommend Normal pressure hydrocephalus evaluation as outpatient. Please avoid benzo as much as possible since can cause worsening agitation in elderly. I started him on Seroquel 25mg qhs and if needed can be on 50mg qhs for psychosis/agitation. Pending routine EEG for his confusion. Recommend a detailed neuropsych evaluation for his memory as an outpatient PT and OT are consulted Patient was counseled on using a cane or walker as outpatient (since he refuses to use it and has falls). We'll defer the rest of the medical management to primary team Patient to move forward with his neurology evaluation as outpatient with Dr. Fernando on 07/27/22 Plan was discussed with his nurse. Time with Patient: Less than 30
[2022-07-13] MEDS: QUEtiapine 25 MG TAB PO SCH (20:23)
--- NOTE | 2022-07-13 21:06 | EEG ---
ELECTROENCEPHALOGRAM REPORT CLINICAL HISTORY: This is a 77-year-old gentleman with altered mental status. The video EEG is obtained to evaluate for seizure epileptiform activity. RELEVANT MEDICATION: Seroquel as well as the patient received 1 dose of Ativan. EEG TYPE: A routine 21-channel EEG is performed with video using the 10/20 electrode placement system. DESCRIPTION: Wakefulness is only obtained. During awake state, the background consists of low-to- moderate voltage of 6 to 7 hertz that is poorly modulated. There is no physiological sleep architecture seen. There is no focal slowing. There is mild diffuse myogenic artifact. Interictal and ictal is none. ACTIVATION PROCEDURE: Photic stimulation did not evoke a posterior driving response. There is no abnormality during photic stimulation. Hyperventilation is not performed. CLINICAL INTERPRETATION: This is an abnormal routine EEG. The background slowing is suggestive of mild encephalopathy. Otherwise, there is no focal slowing, epileptiform discharges, or seizure on the EEG. Clinical correlation is recommended. MMISIDORO / JENNIFERN: [id number] /
[2022-07-14] MEDS: KETOROLAC 15 MG/ML 1 ML VIAL IVP SCH ×4 (00:58→18:14)
[2022-07-14] MEDS: CHOLECALCIFEROL 25 MCG (1000 IU) TABLET PO SCH (09:58)
[2022-07-14] MEDS: ASPIRIN 81 MG PO SCH (09:58)
[2022-07-14] MEDS: LACTATED RINGERS 1,000 ML IV SCH (09:58)
[2022-07-14] MEDS: CYANOCOBALAMIN 500 MCG TAB PO SCH (09:58)
[2022-07-14] MEDS: lisinopriL 20 MG TAB PO SCH (09:58)
--- NOTE | 2022-07-14 14:25 | P.PN ---
Subjective Progress Note Date: 07/14/22 Patient is a 69-year-old male with PMH of hypertension, family history of Alzheimer's disease that presents the ED after being brought by his family for inability to take care of his ADLs and IADLs. Family states that patient lives alone. Over the past month his mentation has been getting worse. Apparently, he had COVID-19 3 weeks ago and has been progressively deteriorating with regard to his mentation since then. Family noted that patient had left the gas on in his house. Patient also refuses to eat 1 by himself. His girlfriend has mentioned that he had 2 falls recently without head trauma. Family also reports urinary incontinence. Patient himself has no complaints. He denies any headac he, lower extremity edema, nausea or vomiting, fever or chills, cough, chest pain, shortness of breath, palpitations, changes in urination or bowel habits. No changes in appetite or weight. He denies any dizziness, numbness/weakness/tingling of the extremities. In the ED, his vital signs are stable. CBC was relatively benign. INR was 1. CMP showed BUN of 22. Initial troponin was negative. Urinalysis negative. UDS negative. CT brain showed mild to moderate age-related cerebral atrophy, possible mild underlying normal pressure hydrocephalus. Chest x-ray was negative. Patient is admitted for placement. Her B12 was noted to be less than 150 which was replaced. TSH and folic acid within normal limits. Ammonia negative. MR brain showed ventricular prominence favoring atrophy, consider NPH. EEG showed mild encephalopathy. Neurology was consulted and recommended IR consultation for high-volume LP was performed on July 12. He was given intermittent doses of Ativan as needed for combativeness and to obtain MRI brain which was noted to worsen his delirium. Patient was started on Seroquel at bedtime for agitation. Patient was seen and examined. Patients mentation has significantly improved today. He has a sitter at bedside. General: non toxic, agitatated, appears at stated age Derm: warm, dry Head: atraumatic, normocephalic, symmetric Eyes: EOMI, no lid lag, anicteric sclera Mouth: no lip lesion, mucus membranes moist Cardiovascular: S1S2 reg, no murmur Lungs: CTA bilateral, no rhonchi, no rales , no accessory muscle use Ext: no gross muscle atrophy, no edema, no contractures Neuro: no focal neuro deficits Psych: Confused and agitated #Failure to thrive #Dementia #Normal pressure hydrocephalus #B12 deficiency PT and OT will be consulted for further management of this patient. cargo services coordinator and case management on board. MR brain shows ventricular prominence favoring atrophy, consider NPH. EEG shows mild encephalopathy. Neurology recommendations appreciated. Status post high-volume LP July 12, 30 mL removed Fall precautions. Advanced neurochecks. TSH and Folic acid within normal limits. Agree with Vitamin B12 replacement ordered by Neurology. We will discontinue Ativan as it could be worsening his dementia. Continue Seroquel QHS. Sitter ordered for redirection. Chronic conditions: #Hypertension BP 118/77 Continue Lisinopril. Case discussed extensively with family regarding placement of the patient. We will discontinue sitter on Saturday (only used for safety). Plans for SNF with insurance authorization. Patient is unsafe for discharge home. Objective - Vital Signs Vital signs: Vital Signs Temp 98.8 F 07/14/22 12:07 Pulse 74 07/14/22 12:07 Resp 16 07/14/22 12:07 BP 118/77 07/14/22 12:07 Pulse Ox 96 07/14/22 12:07 FiO2 Intake & Output 07/13/22 07/14/22 07/14/22 18:59 06:59 18:59 Intake Total 240 Output Total 500 Balance -260 Intake: Oral 240 Output: Urine 500 Other: Voiding Method External Catheter External Catheter External Catheter # Voids 1 2 3 - Labs CBC & Chem 7: 07/11/22 05:32 07/11/22 05:32
--- NOTE | 2022-07-14 14:49 | P.PN ---
Subjective Progress Note Date: 07/14/22 The patient seen at bedside and according to the nurse he is more cooperative less agitated. He has a sitter at bedside. Patient states that he is doing better. Objective - Vital Signs Vital signs: Vital Signs Temp 98.8 F 07/14/22 12:07 Pulse 74 07/14/22 12:07 Resp 16 07/14/22 12:07 BP 118/77 07/14/22 12:07 Pulse Ox 96 07/14/22 12:07 FiO2 Intake & Output 07/13/22 07/14/22 07/14/22 18:59 06:59 18:59 Intake Total 240 Output Total 500 Balance -260 Intake: Oral 240 Output: Urine 500 Other: Voiding Method External Catheter External Catheter External Catheter # Voids 1 2 3 - Exam GENERAL: The patient is lying in bed and is not in acute distress. NEUROLOGICAL: Higher mental function: The patient is awake, alert, oriented to self, place and time. He is following simple commands. No aphasia and no neglect. Cranial nerves: The pupils are round, equal and reactive to light. Visual thorpe are full to confrontation throughout. Extraocular movement is intact no nystagmus is noted. The facial strength is normal throughout. No dysarthria is noted. Motor: Gait is needed some assistance from sitting to standing and upon standing was able to walk on his own but somewhat slow. The strength is 5/5 t hroughout. Normal tone and bulk. Cerebellum: Normal finger to nose bilaterally. Sensation: Sensation is normal to touch throughout. Reflexes (right/left): 2+ throughout. Plantars are mute bilaterally. Some of the workup during this hospital visit consisted of: Vitamin B12 was less than 150 which is deficient. Normal is 200 08/16/1944. Serum folate is 8.20 and a normal supposed to be 4.4-31 Ammonia level is less than 9 TSH is 2.60. Ammonia is less than 9. Sodium, glucose, calcium, AST and ALT is within normal limits. Urinalysis is negative for urinary tract infection Urine drug screen is not detected CT of the head is reported as no acute intracranial hemorrhage or midline shift. There is mild to moderate diffuse age-related cerebral atrophy and mild chronic small vessel ischemic changes noted. Possible mild underlying normal pressure hydrocephalus. Correlate clinically. Correlation with old outside CT or MRI would be beneficial to assess for change. I personally reviewed the CT of the head and I agree with the finding. I feel the patient does have generalized atrophy but I feel the ventricles seems the mildly dilated at least in severity compared to the atrophy. MRI the brain is reported as ventricular prominence favors atrophy however consider no pressure hydrocephalus. Mild chronic appearing deep white matter changes. Routine EEG is abnormal. The background slowing suggestive of mild encephalopathy. Otherwise there is no focal slowing, epileptiform discharge or seizure on the EEG. - Labs CBC & Chem 7: 07/11/22 05:32 07/11/22 05:32 Assessment and Plan Assessment: Probable normal pressure hydrocephalus from clinical presentation (gait disturbance, memory loss and urinary incontinence and symptoms started at least 6 months with memory loss, falls) and radiographically appears more dilated ventricles compared to atrophy suggestive of NPH Cognitive impairement/dementia due to above. Also has vitamin B12 deficiency that causes dementia. Delirium due to hospital induced and medication (benzo) can aggravate in elderly---resolved. Vitamin B12 deficiency Bilateral Cataract Severe hearing loss and has hearing aids Plan: For his vitamin B12 deficiency, placed on vitamin B12 a thousand micrograms IM for total of 3 days which he completed and now on PO. Recommend reevaluating vitamin B12 level within 2-3 weeks He had large volume tap (30cc) on 07/12/22 but I did not feel his gait improved but limited since he was bed bound for couple days because of his confusion. His confusion has resolved to his initial presentation. Recommend Normal pressure hydrocephalus evaluation as outpatient. Please avoid benzo as much as possible since can cause worsening agitation in elderly. I started him on Seroquel 25mg qhs and if needed can be on 50mg qhs for psychosis/agitation. Recommend a detailed neuropsych evaluation for his memory as an outpatient PT and OT are consulted Patient was counseled on using a cane or walker as outpatient (since he refuses to use it and has falls). We'll defer the rest of the medical management to primary team Patient to move forward with his neurology evaluation as outpatient with Dr. Fernando on 07/27/22 Plan was discussed with his daughter (Gwen) and his nurse. There is no further neurological work-up. Will sign off. Please reconsult if needed. Time with Patient: Less than 30
[2022-07-14] MEDS: QUEtiapine 25 MG TAB PO SCH (20:13)
[2022-07-15] MEDS: KETOROLAC 15 MG/ML 1 ML VIAL IVP SCH ×5 (00:32→23:55)
[2022-07-15] MEDS: CHOLECALCIFEROL 25 MCG (1000 IU) TABLET PO SCH (08:54)
[2022-07-15] MEDS: LACTATED RINGERS 1,000 ML IV SCH (08:55)
[2022-07-15] MEDS: ASPIRIN 81 MG PO SCH (08:55)
[2022-07-15] MEDS: lisinopriL 20 MG TAB PO SCH (08:55)
[2022-07-15] MEDS: CYANOCOBALAMIN 500 MCG TAB PO SCH (08:55)
--- NOTE | 2022-07-15 13:19 | P.PN ---
Subjective Progress Note Date: 07/15/22 Patient is a 69-year-old male with PMH of hypertension, family history of Alzheimer's disease that presents the ED after being brought by his family for inability to take care of his ADLs and IADLs. Family states that patient lives alone. Over the past month his mentation has been getting worse. Apparently, he had COVID-19 3 weeks ago and has been progressively deteriorating with regard to his mentation since then. Family noted that patient had left the gas on in his house. Patient also refuses to eat 1 by himself. His girlfriend has mentioned that he had 2 falls recently without head trauma. Family also reports urinary incontinence. Patient himself has no complaints. He denies any headac he, lower extremity edema, nausea or vomiting, fever or chills, cough, chest pain, shortness of breath, palpitations, changes in urination or bowel habits. No changes in appetite or weight. He denies any dizziness, numbness/weakness/tingling of the extremities. In the ED, his vital signs are stable. CBC was relatively benign. INR was 1. CMP showed BUN of 22. Initial troponin was negative. Urinalysis negative. UDS negative. CT brain showed mild to moderate age-related cerebral atrophy, possible mild underlying normal pressure hydrocephalus. Chest x-ray was negative. Patient is admitted for placement. Her B12 was noted to be less than 150 which was replaced. TSH and folic acid within normal limits. Ammonia negative. MR brain showed ventricular prominence favoring atrophy, consider NPH. EEG showed mild encephalopathy. Neurology was consulted and recommended IR consultation for high-volume LP was performed on July 12. He was given intermittent doses of Ativan as needed for combativeness and to obtain MRI brain which was noted to worsen his delirium. Patient was started on Seroquel at bedtime for agitation. Patient was seen and examined. Patients mentation has significantly improved today. He has a sitter at bedside. General: non toxic, agitatated, appears at stated age Derm: warm, dry Head: atraumatic, normocephalic, symmetric Eyes: EOMI, no lid lag, anicteric sclera Mouth: no lip lesion, mucus membranes moist Cardiovascular: S1S2 reg, no murmur Lungs: CTA bilateral, no rhonchi, no rales , no accessory muscle use Ext: no gross muscle atrophy, no edema, no contractures Neuro: no focal neuro deficits Psych: Confused and agitated #Failure to thrive #Dementia with Delirium #Normal pressure hydrocephalus #B12 deficiency PT and OT will be consulted for further management of this patient. business services coordinator and case management on board. MR brain shows ventricular prominence favoring atrophy, consider NPH. EEG shows mild encephalopathy. Neurology recommendations appreciated. Status post high-volume LP July 12, 30 mL removed Fall precautions. Advanced neurochecks. TSH and Folic acid within normal limits. Agree with Vitamin B12 replacement ordered by Neurology. We will discontinue Ativan as it could be worsening his dementia. Continue Seroquel QHS. Sitter discontinued. Chronic conditions: #Hypertension BP 103/66 Continue Lisinopril. Case discussed extensively with family regarding placement of the patient. We will discontinue sitter today. Plans for SNF with insurance authorization. Patient is unsafe for discharge home. Objective - Vital Signs Vital signs: Vital Signs Temp 97.9 F 07/15/22 13:10 Pulse 71 07/15/22 13:10 Resp 16 07/15/22 13:10 BP 103/66 07/15/22 13:10 Pulse Ox 98 07/15/22 13:10 FiO2 Intake & Output 07/14/22 07/15/22 07/15/22 18:59 06:59 18:59 Intake Total 240 700 Output Total 500 500 Balance -260 700 -500 Intake: Oral 240 700 Output: Urine 500 500 Other: Voiding Method External Catheter External Catheter External Catheter # Voids 3 2 2 - Labs CBC & Chem 7: 07/11/22 05:32 07/11/22 05:32
[2022-07-15] MEDS: QUEtiapine 25 MG TAB PO SCH (20:25)
[2022-07-16] MEDS: KETOROLAC 15 MG/ML 1 ML VIAL IVP SCH ×2 (05:55→12:22)
[2022-07-16] MEDS: lisinopriL 20 MG TAB PO SCH (08:08)
[2022-07-16] MEDS: CHOLECALCIFEROL 25 MCG (1000 IU) TABLET PO SCH (08:08)
[2022-07-16] MEDS: CYANOCOBALAMIN 500 MCG TAB PO SCH (08:08)
[2022-07-16] MEDS: ASPIRIN 81 MG PO SCH (08:08)
[2022-07-16] MEDS: LACTATED RINGERS 1,000 ML IV SCH (12:31)
--- NOTE | 2022-07-16 16:16 | P.PN ---
Subjective Progress Note Date: 07/16/22 (Delayed charting seen at 10:30) Patient is a 69-year-old male with hypertension, urinary incontinence, and family history of Alzheimer's diseas who presented to the ED after being brought by his family for inability to take care of his ADLs and IADL. He had COVID-19 3 weeks ago and has been progressively deteriorating with regard to his mentation since then. In the emergency department his vital signs were stable. CBC was relatively benign. INR was 1. CMP showed BUN of 22. Initial troponin was negative. Urinalysis negative. UDS negative. CT brain showed mild to moderate age-related cerebral atrophy, possible mild underlying normal pressure hydrocephalus. Chest x-ray was negative. Patien was admitted for placement. Her B12 was noted to be less than 150 which was replaced. TSH and folic acid within normal limits. Ammonia negative. MR brain showed ventricular prominence favoring atrophy, consider NPH. EEG showed mild encephalopathy. Neurology was consulted and recommended IR consultation for high-volume LP was performed on July 12 which did not results in significant improvement and neuro recommended continue outpatietn follow-up for NPH. He was given intermittent doses of Ativan as needed for combativeness and to obtain MRI brain which was noted to worsen his delirium. Patient was started on Seroquel at bedtime for agitation. Continue to improve somewhat. Arrangements were made for custodial facility. female examined at bedside. He continues to be confused but he is pleasant and cooperative. He denies any pain or difficulty breathing. Last urinated he talks about how his house looks. General: nontoxic, no distress, appears at stated age Derm: warm, dry Head: atraumatic, normocephalic, symmetric Eyes: EOMI, no lid lag, anicteric sclera Mouth: no lip lesion, mucus membranes moist Cardiovascular: S1S2 reg, no murmur, positive posterior tibial pulse bilateral, Lungs: Coarse breath sounds bilateral, no rhonchi, no rales , no accessory muscle use Abdominal: soft, nontender to palpation, no guarding, no appreciable organomegaly Ext: no gross muscle atrophy, no edema, no contractures Neuro: CN II-XI grossly intact, no focal neuro deficits Psych: Alert, oriented to self, blunted affect Assessment/plan: Dementia with acute delirium Failure to thrive Possible normal pressure hydrocephalus B12 deficiency Hypertension Debility -Currently awaiting custodial facility. Large-volume paracentesis was completed on July 12 without significant improvement. Neurology has signed off. Patient is no longer requiring when necessary benzodiazepines as has been optimized with Seroquel at night. Medications reviewed we'll continue with B12, vitamin D, lisinopril, melatonin, and Seroquel. All prior lab work reviewed by myself from this hospital stay including CBC, BMP, A1c, troponin, B12, folate, TSH, ammonia, UA, UDS. CT brain, MRI brain, EEG reports were reviewed. Anticipate discharge once insurance authorization obtained. Active Medications Generic Name Dose Route Start Last Admin Trade Name Freq PRN Reason Stop Dose Admin Acetaminophen 650 mg 07/10/22 19:15 Acetaminophen Tab 325 Mg Tab PO Q6HR PRN Mild Pain or Fever > 100.5 Aspirin 81 mg 07/11/22 09:00 07/16/22 08:08 Aspirin 81 Mg PO 81 mg DAILY BESSIE Administration Calcium Carbonate/Glycine 1,000 mg 07/10/22 19:15 Calcium Carbonate 500 Mg Chewable PO Q4HR PRN Dyspepsia Cholecalciferol 25 mcg 07/11/22 09:00 07/16/22 08:08 Cholecalciferol 25 Mcg (1000 Iu) Tablet PO 25 mcg DAILY BESSIE Administration Cyanocobalamin 1,000 mcg 07/14/22 09:00 07/16/22 08:08 Cyanocobalamin 500 Mcg Tab PO 1,000 mcg DAILY BESSIE Administration Lactated Ringer's 1,000 mls @ 20 mls/hr 07/12/22 10:15 07/16/22 12:31 Lactated Ringers IV Not Given .Q24H BESSIE Lisinopril 20 mg 07/11/22 09:00 07/16/22 08:08 Lisinopril 20 Mg Tab PO 20 mg DAILY BESSIE Administration Melatonin 3 mg 07/10/22 19:15 07/10/22 22:15 Melatonin 3 Mg Tablet PO 3 mg HS PRN Administration Insomnia Naloxone HCl 0.2 mg 07/10/22 19:15 Naloxone 0.4 Mg/Ml 1 Ml Vial IV Q2M PRN Opioid Reversal Ondansetron HCl 4 mg 07/10/22 19:15 Ondansetron 4 Mg/2 Ml Vial IVP Q8HR PRN Nausea And Vomiting Quetiapine Fumarate 25 mg 07/12/22 21:00 07/15/22 20:25 Quetiapine 25 Mg Tab PO 25 mg HS BESSIE Administration Objective - Vital Signs Vital signs: Vital Signs Temp 97.4 F L 07/16/22 12:34 Pulse 80 07/16/22 12:34 Resp 16 07/16/22 12:34 BP 138/76 07/16/22 12:34 Pulse Ox 99 07/16/22 12:34 FiO2 Intake & Output 07/15/22 07/16/22 07/16/22 18:59 06:59 18:59 Intake Total 240 0 Output Total 500 Balance -260 0 Intake: Intake, IV Titration 0 Amount Lactated Ringers 1,000 ml 0 @ 20 mls/hr IV .Q24H BESSIE Rx#:[id number] Oral 240 Output: Urine 500 Other: Voiding Method External Catheter # Voids 4 2 - Labs CBC & Chem 7: 07/11/22 05:32 07/11/22 05:32
[2022-07-16] MEDS: ACETAMINOPHEN TAB 325 MG TAB PO PRN (20:05)
[2022-07-16] MEDS: QUEtiapine 25 MG TAB PO SCH (20:05)
[2022-07-17 07:52] VITALS: RESP 18
[2022-07-17] MEDS: CYANOCOBALAMIN 500 MCG TAB PO SCH (08:05)
[2022-07-17] MEDS: ASPIRIN 81 MG PO SCH (08:05)
[2022-07-17] MEDS: ACETAMINOPHEN TAB 325 MG TAB PO PRN (08:05)
[2022-07-17] MEDS: LACTATED RINGERS 1,000 ML IV SCH (08:06)
[2022-07-17] MEDS: CHOLECALCIFEROL 25 MCG (1000 IU) TABLET PO SCH (08:06)
[2022-07-17] MEDS: lisinopriL 20 MG TAB PO SCH (08:06)
[2022-07-17 12:36] VITALS: BP 129/79; PULSE 87; TEMP 97.3
--- NOTE | 2022-07-17 13:12 | P.DS ---
Providers Date of admission: 07/16/22 11:10 Expected date of discharge: 07/17/22 Attending physician: Rolan Hawkins DO Consults: 07/10/22 17:27 Consult Physician Urgent Consulting Provider: Gordon Aaron Consult Reason/Comments: Normal pressure hydrocephalus Do you want consulting provider notified?: Yes Primary care physician: Physician Nonstaff Hospital Course: Discharge Diagnosis: Dementia with acute delirium Failure to thrive Possible normal pressure hydrocephalus B12 deficiency Hypertension Debility Hospital Course: Patient is a 77-year-old male with hypertension, urinary incontinence, and family history of Alzheimer's diseas who presented to the ED after being brought by his family for inability to take care of his ADLs and IADL. He had COVID-19 3 weeks ago and has been progressively deteriorating with regard to his mentation since then. In the emergency department his vital signs were stable. CBC was relatively benign. INR was 1. CMP showed BUN of 22. Initial troponin was negative. Urinalysis negative. UDS negative. CT brain showed mild to moderate age-related cerebral atrophy, possible mild underlying normal pressure hydrocephalus. Chest x-ray was negative. Patien was admitted for work-up for altered mentation and weakness. His B12 was noted to be less than 150 which was replaced. TSH and folic acid within normal limits. Ammonia was negative. MR brain showed ventricular prominence favoring atrophy, consider NPH. EEG showed mild encephalopathy. Neurology was consulted and recommended IR consultation for high-volume LP was performed on July 12 which did not results in significant improvement and neuro recommended continue outpatietn follow-up for NPH. He was given intermittent doses of Ativan as needed for combativeness and to obtain MRI brain which was noted to worsen his delirium. Patient was started on Seroquel at bedtime for agitation. Continue to improve somewhat. Arrangements were made for [facility]. Follow-up: B12 level in 4 weeks, Recommend neuropych testing after discharge, Neurology follow-up for further NPH evaluation. Patient seen and examined at bedside. Regarding the hospital. He denies any chest pain or shortness of breath. He will be discharged. He is more alert today and is aware that it is 2022, that he is in [place], he does think the month is June. Vital signs reviewed and stable. General: nontoxic, no distress, appears at stated age Derm: warm, dry Head: atraumatic, normocephalic, symmetric Eyes: EOMI, no lid lag, anicteric sclera Mouth: no lip lesion, mucus membranes moist Cardiovascular: S1S2 reg, no murmur, positive posterior tibial pulse bilateral, Lungs: CTA bilateral, no rhonchi, no rales , no accessory muscle use Abdominal: soft, nontender to palpation, no guarding, no appreciable organomegaly Ext: no gross muscle atrophy, no edema, no contractures Neuro: CN II-XI grossly intact, no focal neuro deficits Psych: Alert, oriented, appropriate affect A total of 35 minutes of time were spent preparing this complex discharge summary. Patient was discharged on 07/17/22. Plan - Discharge Summary Discharge Rx Participant: No New Discharge Prescriptions: New Melatonin 3 mg PO HS PRN tab PRN Reason: Insomnia Cyanocobalamin [Vitamin B-12] 1,000 mcg PO DAILY tab QUEtiapine [SEROquel] 25 mg PO HS tab Continue Cholecalciferol [Vitamin D3 (25 Mcg = 1000 Iu)] 25 mcg PO DAILY Ofloxacin 0.3% Ophth Soln [Ocuflox Ophth Soln] 1 drop LEFT EYE DIRECTED lisinopriL [Zestril] 20 mg PO DAILY Aspirin EC [Ecotrin Low Dose] 81 mg PO DAILY Bromfenac Sodium [Prolensa Ophth Soln] 1 drop LEFT EYE DIRECTED Discharge Medication List Aspirin EC [Ecotrin Low Dose] 81 mg PO DAILY 07/10/22 [History] Bromfenac Sodium [Prolensa Ophth Soln] 1 drop LEFT EYE DIRECTED 07/10/22 [History] Cholecalciferol [Vitamin D3 (25 Mcg = 1000 Iu)] 25 mcg PO DAILY 07/10/22 [History] Ofloxacin 0.3% Ophth Soln [Ocuflox Ophth Soln] 1 drop LEFT EYE DIRECTED 07/10/22 [History] lisinopriL [Zestril] 20 mg PO DAILY 07/10/22 [History] Cyanocobalamin [Vitamin B-12] 1,000 mcg PO DAILY tab 07/17/22 [Rx] Melatonin 3 mg PO HS PRN tab 07/17/22 [Rx] QUEtiapine [SEROquel] 25 mg PO HS tab 07/17/22 [Rx] Follow up Appointment(s)/Referral(s): Javan Silverman MD [REFERRING] - 1-2 days Chelsey Fuentes MD [REFERRING] - 1 Week Activity/Diet/Wound Care/Special Instructions: Activity: as tolerated, fall precautions Diet: heart healthy Special Instructions: B12 level in 4 weeks [facility] Schedule a Neuropsycholgy Evaluation: Please call to schedule. Discharge/Stand Alone Forms: Anes Pain/[facility] Instructions Discharge Disposition: TRANSFER TO SNF/ECF
== END 2022-07-17 16:55 | DRG 57 ==
LOC: EC 13:48 → 6NMEDSUR 17:30 → 5NMEDONC 07-11 11:48 → OBSVTOIN 07-16 11:10
PROVIDERS: ADMIT Internal Medicine; ATTEND Internal Medicine
PROC: 009U3ZX Drainage of Spinal Canal, Percutaneous Approach, Diagnostic (ICD-10-PCS; principal; 2022-07-12 11:30)
DX: G91.2 (Idiopathic) normal pressure hydrocephalus (principal); G93.49 Other encephalopathy; F05 Delirium due to known physiological condition; F02.811 Dementia in other diseases classified elsewhere, unspecified severity, with agitation; R62.7 Adult failure to thrive; I10 Essential (primary) hypertension; G47.00 Insomnia, unspecified; E53.8 Deficiency of other specified B group vitamins; H91.93 Unspecified hearing loss, bilateral; T42.4X5A Adverse effect of benzodiazepines, initial encounter; R29.6 Repeated falls; Z74.1 Need for assistance with personal care; Z96.651 Presence of right artificial knee joint; Z86.16 Personal history of COVID-19; Z82.0 Family history of epilepsy and other diseases of the nervous system; Z87.891 Personal history of nicotine dependence; Z79.82 Long term (current) use of aspirin; Z79.899 Other long term (current) drug therapy; Z97.4 Presence of external hearing-aid; Z91.81 History of falling
CPT/HCPCS: 36415; 62329; 70450; 70551; 71046; 74019; 80048; 80053; 80306; 81003; 82140; 82607; 82746; 83036; 84443; 84484; 85025; 85610; 85730; 93005; 94760; 95816; 96361; 96372; 96374; 99285

== ENCOUNTER 2022-07-22 14:31 | Observation (INO) | payer MEDICARE, OTHER ==
[2022-07-22 15:11] LABS: Glucose,Whole Blood 115 mg/dL (70-110)
[2022-07-22] MEDS ORDERED: SODIUM CHLORIDE 0.9% 1,000 ML IV STA (15:19)
[2022-07-22] MEDS ORDERED: SODIUM CHLORIDE 0.9% 500 ML 500 ML IV ONE (15:19)
[2022-07-22 15:54] LABS: Partial Thromboplastin Time 22.4 sec (22.0-30.0); Prothrombin Time 10.2 sec (9.0-12.0)
[2022-07-22 16:02] LABS: ALT 63 U/L (4-49); AST 151 U/L (17-59); African American GFR (CKD) >90 (>60 ml/min/1.73 sqM); Albumin 3.4 g/dL (3.5-5.0); Alkaline Phosphatase 86 U/L (38-126); Anion Gap 5 mmol/L; Blood Urea Nitrogen 35 mg/dL (9-20); Calcium 9.1 mg/dL (8.4-10.2); Carbon Dioxide 30 mmol/L (22-30); Chloride 104 mmol/L (98-107); Glucose 117 mg/dL (74-99); Non-African American GFR(CKD) >90 (>60 ml/min/1.73 sqM); Potassium 3.9 mmol/L (3.5-5.1); Sodium 139 mmol/L (137-145); Total Bilirubin 0.9 mg/dL (0.2-1.3); Total Protein 6.2 g/dL (6.3-8.2)
--- NOTE | 2022-07-22 16:03 | XR ---
EXAMINATION TYPE: XR chest 2V DATE OF EXAM: 07/22/2022 COMPARISON: 07/10/2022 HISTORY: Altered mental status TECHNIQUE: 2 views FINDINGS: Thoracic aorta is atheromatous. Lungs are clear of consolidation. There are no hilar masses . The bony thorax is intact. IMPRESSION: No active cardiopulmonary disease. No change.
--- NOTE | 2022-07-22 16:07 | CT ---
EXAMINATION TYPE: CT brain wo con DATE OF EXAM: 07/22/2022 COMPARISON: 07/10/2022 HISTORY: AMS, weakness CT DLP: 1188.4 mGycm Automated exposure control for dose reduction was used. There is cerebral cortical atrophy. There is enlargement of the ventricles. There is no mass effect o r midline shift. No sign of intracranial hemorrhage. There is mild hypodensity in the periventricular white matter. The calvarium is intact. Skull base is intact. IMPRESSION: Cerebral atrophy. Moderate hydrocephalus. No acute intracranial abnormality. No change.
[2022-07-22 16:09] LABS: Basophils % (A) 0 %; Eosinophils % (A) 0 %; HCT 36.6 % (39.0-53.0); HGB 12.2 gm/dL (13.0-17.5); Lymphocytes # (A) 1.7 k/uL (1.0-4.8); Lymphocytes % (A) 16 %; MCH 29.8 pg (25.0-35.0); MCHC 33.3 g/dL (31.0-37.0); MCV 89.4 fL (80.0-100.0); Mean Platelet Volume 9.2; Monocytes # (A) 0.7 k/uL (0-1.0); Monocytes % (A) 7 %; Neutrophils # (A) 7.7 k/uL (1.3-7.7); Neutrophils % (A) 75 %; Platelet Count 252 k/uL (150-450); RDW 12.8 % (11.5-15.5); WBC 10.2 k/uL (3.8-10.6)
--- NOTE | 2022-07-22 16:46 | ED ---
General Adult HPI - General Chief complaint: Altered Mental Status Stated complaint: AMS Time Seen by Provider: 07/22/22 15:07 Source: patient, EMS Mode of arrival: EMS Limitations: altered mental status (There appears to be dementia versus delirium) - History of Present Illness Initial comments: This patient is 77-year-old man sent here from the [facility] reports here on to have evaluation after he is not appearing to be his usual self. The patient had been in the hospital with admission to rule out normal pressure hydrocephalus, as she had been having unsteady gait, mental status changes. He did have a lumbar puncture while in the hospital but that did not improve his symptoms and therefore it is thought that in pH was less likely the cause and he was not going to have shunt placement. The [facility] days now and over the past day they noted that he has not been wanting to walk. He is been resistive to care, and he is not seeming like his usual self. Patient's family subsequent only arrived and stated that he is been having an increase in cough as well. When I interviewed the patient, he was denying all symptoms other than having a cough. Onset/Timin -: days(s) - Related Data Home Medications Medication Instructions Recorded Confirmed Aspirin EC [Ecotrin Low Dose] 81 mg PO DAILY 07/10/22 07/22/22 Cholecalciferol [Vitamin D3 (25 25 mcg PO DAILY 07/10/22 07/22/22 Mcg = 1000 Iu)] lisinopriL [Zestril] 20 mg PO DAILY 07/10/22 07/22/22 QUEtiapine [SEROquel] 50 mg PO DIRECTED 07/22/22 07/22/22 Previous Rx's Medication Instructions Recorded Cyanocobalamin [Vitamin B-12] 1,000 mcg PO DAILY tab 07/17/22 Melatonin 3 mg PO HS PRN tab 07/17/22 Allergies Allergy/AdvReac Type Severity Reaction Status Date / Time lorazepam [From Ativan] AdvReac Hallucinati Verified 07/22/22 18:31 ons Review of Systems ROS Statement: Those systems with pertinent positive or pertinent negative responses have been documented in the HPI. ROS Other: All systems not noted in ROS Statement are negative. Limitations: ROS unobtainable due to patients medical condition (Dementia versus delirium) Constitutional: Denies: fever Respiratory: Reports: cough. Denies: dyspnea Cardiovascular: Denies: chest pain Gastrointestinal: Denies: abdominal pain, vomiting Musculoskeletal: Denies: back pain Neurological: Denies: headache Past Medical History Past Medical History: Dementia, Hypertension Additional Past Medical History / Comment(s): Increased forgetfulness, urinary incontinence, covid and influenza about 3-5 weeks ago, encephalopathy, alzheimer's History of Any Multi-Drug Resistant Organisms: None Reported Past Surgical History: Joint Replacement Additional Past Surgical History / Comment(s): right knee replacement, Past Anesthesia/Blood Transfusion Reactions: No Reported Reaction Past Psychological History: No Psychological Hx Reported Smoking Status: Never smoker Past Alcohol Use History: None Reported Past Drug Use History: None Reported - Past Family History Mother Family Medical History: Dementia Father Family Medical History: Dementia General Exam Limitations: altered mental status General appearance: alert, in no apparent distress Head exam: Present: atraumatic, normocephalic Eye exam: Present: normal appearance, PERRL, EOMI. Absent: scleral icterus, conjunctival injection, nystagmus ENT exam: Present: mucous membranes dry Neck exam: Present: normal inspection, full ROM. Absent: tenderness, meningismus Respiratory exam: Present: rhonchi, other (There is occasional nonproductive cough during the exam). Absent: respiratory distress, wheezes, rales, stridor, chest wall tenderness, accessory muscle use Cardiovascular Exam: Present: normal rhythm, tachycardia, systolic murmur. Absent: diastolic murmur, rubs, gallop GI/Abdominal exam: Present: soft. Absent: distended, tenderness, guarding, rebound, rigid, mass, pulsatile mass Extremities exam: Present: normal inspection, full ROM, normal capillary refill, other (Patient has abrasion lateral aspect left knee, no bony tenderness or deformity). Absent: tenderness, pedal edema Back exam: Present: normal inspection, paraspinal tenderness (Mid lumbar area), vertebral tenderness (Mid lumbar area), other (There is no evident deformity. No contusion evident). Absent: CVA tenderness (R), CVA tenderness (L) Neurological exam: Present: alert, CN II-XII intact. Absent: oriented X3 (Patient is oriented to person), motor sensory deficit Skin exam: Present: warm, dry, intact, abrasion (Knee). Absent: rash Course Vital Signs 07/22/22 07/22/22 07/22/22 14:35 16:48 19:00 Temperature 97.8 F Pulse Rate 114 H 87 68 Pulse Rate [ Pulse Oximetery ] Respiratory 18 18 18 Rate Blood Pressure 142/82 146/85 130/98 Blood Pressure [Right Arm] O2 Sat by Pulse 96 95 99 Oximetry 07/22/22 20:00 Temperature 99.6 F Pulse Rate Pulse Rate [ 98 Pulse Oximetery ] Respiratory 17 Rate Blood Pressure Blood Pressure 143/84 [Right Arm] O2 Sat by Pulse 94 L Oximetry EKG Findings - EKG Results: EKG: interpreted by ERMD, sinus rhythm (With occasional supraventricular complex), normal axis EKG shows: tachycardia (Rate 103 bpm) - Blocks, [place], Hypertrophy, ST Abn: Chamber hypertrophy or enlargement: only voltage criteria for left ventricular hypertrophy Medical Decision Making - Medical Decision Making This patient is 77-year-old man sent from jail to have evaluation for altered mental status. Patient is noted to have moderately frequent cough during the exam. No infection is evident. Medically the patient does appear to be mildly dehydrated and is given a gentle fluid bolus due to advanced age The patient has CT head performed due to the altered mental status which is interpreted by myself as showing no acute intracranial hemorrhage, no skull fracture, ventricles are somewhat larger than expected. Chest x-ray obtained which does not reveal acute pulmonary infiltrate, as interpreted by myself. Given the low back tenderness, lumbar x-ray and pelvis obtained which do not show acute bony trauma as interpreted by myself. Patient will be admitted for further evaluation and treatment by urology and to see if an infiltrate develops on the repeat chest x-ray in the morning, given the patient's persistent cough. Was pt. sent in by a medical professional or institution? @ -[ jail] Did you speak to anyone other than the patient for history? @ -[Family Did you review nursing and triage notes? @ -[agree Were old charts reviewed? @ -[alf record, previous admission record Differential Diagnosis? @ -[Differential Altered Mental Status: Hypoglycemia, DKA, hypercapnia, ETOH, overdose, CO poisoning, trauma, myxedema coma, HTN encephalopathy, infection, encephalitis, psychosis, intercranial hemorrhage, hepatic encephalopathy, meningitis, CVA, this is not meant to be an all-inclusive list EKG interpreted by me (3pts min.)? @ -[See chart X-rays interpreted by me (1pt min.)? @ -[See chart CT interpreted by me (1pt min.)? @ -[See chart U/S interpreted by me (1pt. min.)? @ -[none] What testing was considered but not performed? (CT, X-rays, U/S, labs)? Why? @ [No What meds were considered but not given? Why? @ -[none] Did you discuss the management of the patient with other professionals? @ -[Admitting physician Did you reconcile home meds? @ -[Is Was smoking cessation discussed for >3mins.? @ -[none] Was critical care preformed (if so, how long)? @ -[none] Were there social determinants of health that impacted care today? How? (Homelessness, low income, unemployed, alcoholism, drug addiction, transportation, low edu. Level, literacy, decrease access to med. care, assisted, re hab)? @ -[alf placement Was there de-escalation of care discussed even if they declined? (Discuss DNR or withdrawal of care, Hospice)? @ -[No What co-morbidities impacted this encounter? (DM, HTN, Smoking, COPD, CAD, Cancer, CVA, Hep., AIDS, mental health diagnosis, sleep apnea, morbid obesity)? @ -[Possible underlying dementia Was patient admitted / discharged? @ -[Admitted Undiagnosed new problem with uncertain prognosis? @ -[none] Drug Therapy requiring intensive monitoring for toxicity (Heparin, Nitro, Insulin, Cardizem)? @ -[none] Were any procedures done? @ -[none] Diagnosis/symptom? @ -[1. Acute on chronic mental status changes 2. Acute dehydration 3. Acute cough Acute, or Chronic, or Acute on Chronic? @ -[default] Uncomplicated (without systemic symptoms) or Complicated (systemic symptoms)? @ -[Uncomplicated Side effects of treatment? @ -[none] Exacerbation, Progression, or Severe Exacerbation] @ -[no] Poses a threat to life or bodily function? @ -[no] - Lab Data Result diagrams: 07/22/22 15:21 07/22/22 15:21 Lab Results 07/22/22 07/22/22 07/22/22 Range/Units 15:10 15:21 15:21 WBC 10.2 (3.8-10.6) k/uL RBC 4.10 L (4.30-5.90) m/uL Hgb 12.2 L (13.0-17.5) gm/dL Hct 36.6 L (39.0-53.0) % MCV 89.4 (80.0-100.0) fL MCH 29.8 (25.0-35.0) pg MCHC 33.3 (31.0-37.0) g/dL RDW 12.8 (11.5-15.5) % Plt Count 252 (150-450) k/uL MPV 9.2 Neutrophils % 75 % Lymphocytes % 16 % Monocytes % 7 % Eosinophils % 0 % Basophils % 0 % Neutrophils # 7.7 (1.3-7.7) k/uL Lymphocytes # 1.7 (1.0-4.8) k/uL Monocytes # 0.7 (0-1.0) k/uL Eosinophils # 0.0 (0-0.7) k/uL Basophils # 0.0 (0-0.2) k/uL PT 10.2 (9.0-12.0) sec INR 1.0 (<1.2) APTT 22.4 (22.0-30.0) sec Sodium (137-145) mmol/L Potassium (3.5-5.1) mmol/L Chloride (98-107) mmol/L Carbon Dioxide (22-30) mmol/L Anion Gap mmol/L BUN (9-20) mg/dL Creatinine (0.66-1.25) mg/dL Est GFR (CKD-EPI)AfAm (>60 ml/min/1.73 sqM) Est GFR (CKD-EPI)NonAf (>60 ml/min/1.73 sqM) Glucose (74-99) mg/dL POC Glucose (mg/dL) 115 H (70-110) mg/dL POC Glu Sheet Metal Erector ID December, Calcium (8.4-10.2) mg/dL Total Bilirubin (0.2-1.3) mg/dL AST (17-59) U/L ALT (4-49) U/L Alkaline Phosphatase (38-126) U/L Troponin I (0.000-0.034) ng/mL Total Protein (6.3-8.2) g/dL Albumin (3.5-5.0) g/dL Urine Color Urine Appearance (Clear) Urine pH (5.0-8.0) Ur Specific [place] (1.001-1.035) Urine Protein (Negative) Urine Glucose (UA) (Negative) Urine Ketones (Negative) Urine Blood (Negative) Urine Nitrite (Negative) Urine Bilirubin (Negative) Urine Urobilinogen (<2.0) mg/dL Ur Leukocyte Esterase (Negative) Influenza Type A (PCR) (Not Detectd) Influenza Type B (PCR) (Not Detectd) RSV (PCR) (Not Detectd) SARS-CoV-2 (PCR) (Not Detectd) 07/22/22 07/22/22 07/22/22 Range/Units 15:21 15:21 15:21 WBC (3.8-10.6) k/uL RBC (4.30-5.90) m/uL Hgb (13.0-17.5) gm/dL Hct (39.0-53.0) % MCV (80.0-100.0) fL MCH (25.0-35.0) pg MCHC (31.0-37.0) g/dL RDW (11.5-15.5) % Plt Count (150-450) k/uL MPV Neutrophils % % Lymphocytes % % Monocytes % % Eosinophils % % Basophils % % Neutrophils # (1.3-7.7) k/uL Lymphocytes # (1.0-4.8) k/uL Monocytes # (0-1.0) k/uL Eosinophils # (0-0.7) k/uL Basophils # (0-0.2) k/uL PT (9.0-12.0) sec INR (<1.2) APTT (22.0-30.0) sec Sodium 139 (137-145) mmol/L Potassium 3.9 (3.5-5.1) mmol/L Chloride 104 (98-107) mmol/L Carbon Dioxide 30 (22-30) mmol/L Anion Gap 5 mmol/L BUN 35 H (9-20) mg/dL Creatinine 0.71 (0.66-1.25) mg/dL Est GFR (CKD-EPI)AfAm >90 (>60 ml/min/1.73 sqM) Est GFR (CKD-EPI)NonAf >90 (>60 ml/min/1.73 sqM) Glucose 117 H (74-99) mg/dL POC Glucose (mg/dL) (70-110) mg/dL POC Glu Sheet Metal Erector ID Calcium 9.1 (8.4-10.2) mg/dL Total Bilirubin 0.9 (0.2-1.3) mg/dL AST 151 H (17-59) U/L ALT 63 H (4-49) U/L Alkaline Phosphatase 86 (38-126) U/L Troponin I <0.012 (0.000-0.034) ng/mL Total Protein 6.2 L (6.3-8.2) g/dL Albumin 3.4 L (3.5-5.0) g/dL Urine Color Yellow Urine Appearance Clear (Clear) Urine pH 5.5 (5.0-8.0) Ur Specific [place] 1.024 (1.001-1.035) Urine Protein Trace H (Negative) Urine Glucose (UA) Negative (Negative) Urine Ketones Trace H (Negative) Urine Blood Negative (Negative) Urine Nitrite Negative (Negative) Urine Bilirubin Negative (Negative) Urine Urobilinogen <2.0 (<2.0) mg/dL Ur Leukocyte Esterase Negative (Negative) Influenza Type A (PCR) (Not Detectd) Influenza Type B (PCR) (Not Detectd) RSV (PCR) (Not Detectd) SARS-CoV-2 (PCR) (Not Detectd) 07/22/22 Range/Units 15:21 WBC (3.8-10.6) k/uL RBC (4.30-5.90) m/uL Hgb (13.0-17.5) gm/dL Hct (39.0-53.0) % MCV (80.0-100.0) fL MCH (25.0-35.0) pg MCHC (31.0-37.0) g/dL RDW (11.5-15.5) % Plt Count (150-450) k/uL MPV Neutrophils % % Lymphocytes % % Monocytes % % Eosinophils % % Basophils % % Neutrophils # (1.3-7.7) k/uL Lymphocytes # (1.0-4.8) k/uL Monocytes # (0-1.0) k/uL Eosinophils # (0-0.7) k/uL Basophils # (0-0.2) k/uL PT (9.0-12.0) sec INR (<1.2) APTT (22.0-30.0) sec Sodium (137-145) mmol/L Potassium (3.5-5.1) mmol/L Chloride (98-107) mmol/L Carbon Dioxide (22-30) mmol/L Anion Gap mmol/L BUN (9-20) mg/dL Creatinine (0.66-1.25) mg/dL Est GFR (CKD-EPI)AfAm (>60 ml/min/1.73 sqM) Est GFR (CKD-EPI)NonAf (>60 ml/min/1.73 sqM) Glucose (74-99) mg/dL POC Glucose (mg/dL) (70-110) mg/dL POC Glu Sheet Metal Erector ID Calcium (8.4-10.2) mg/dL Total Bilirubin (0.2-1.3) mg/dL AST (17-59) U/L ALT (4-49) U/L Alkaline Phosphatase (38-126) U/L Troponin I (0.000-0.034) ng/mL Total Protein (6.3-8.2) g/dL Albumin (3.5-5.0) g/dL Urine Color Urine Appearance (Clear) Urine pH (5.0-8.0) Ur Specific [place] (1.001-1.035) Urine Protein (Negative) Urine Glucose (UA) (Negative) Urine Ketones (Negative) Urine Blood (Negative) Urine Nitrite (Negative) Urine Bilirubin (Negative) Urine Urobilinogen (<2.0) mg/dL Ur Leukocyte Esterase (Negative) Influenza Type A (PCR) Not Detected (Not Detectd) Influenza Type B (PCR) Not Detected (Not Detectd) RSV (PCR) Not Detected (Not Detectd) SARS-CoV-2 (PCR) Not Detected (Not Detectd) Disposition Clinical Impression: Failure to thrive, Cough, Mental status alteration, Dehydration Disposition: ADMITTED IP TO THIS HOSP Condition: Poor Is patient prescribed a controlled substance at d/c from ED?: No
[2022-07-22 17:51] LABS: Appearance,Urine Clear (Clear); Bilirubin,Urine Negative (Negative); Blood,Urine Negative (Negative); Color,Urine Yellow; Glucose,Urine (UA) Negative (Negative); Ketones,Urine Trace (Negative); Leukocyte Esterase,Urine Negative (Negative); Nitrite,Urine Negative (Negative); PH, Urine 5.5 (5.0-8.0); Protein,Urine Trace (Negative); Specific Gravity,Urine 1.024 (1.001-1.035); Urobilinogen,Urine <2.0 mg/dL (<2.0)
--- NOTE | 2022-07-22 19:15 | XR ---
EXAMINATION TYPE: XR pelvis AP view DATE OF EXAM: 07/22/2022 COMPARISON: NONE HISTORY: Back pain TECHNIQUE: Single view FINDINGS: The pelvic ring is intact. The proximal femurs and hip joints are intact. Sacroiliac joints are intact. IMPRESSION: No acute abnormality of the pelvis. No fracture.
--- NOTE | 2022-07-22 19:16 | XR ---
EXAMINATION TYPE: XR lumbar spine 2 or 3V DATE OF EXAM: 07/22/2022 COMPARISON: NONE HISTORY: Back pain TECHNIQUE: 3 views FINDINGS: The lumbar vertebrae have normal alignment. There is disc space narrowing and spur formatio n at L4-5 and L5-S1. No aorta is atheromatous. No compression fracture. Sacroiliac joints are intact. IMPRESSION: Spondylotic changes in the lower lumbar spine. No fracture seen.
[2022-07-22] MEDS ORDERED: NALOXONE 0.4 MG/ML 1 ML VIAL IV PRN (19:25)
[2022-07-22] MEDS ORDERED: ACETAMINOPHEN TAB 325 MG TAB PO PRN (19:25)
[2022-07-22] MEDS ORDERED: SODIUM CHLORIDE 0.9% 1,000 ML IV SCH (19:30)
[2022-07-22] MEDS ORDERED: MELATONIN 3 MG TABLET PO PRN (21:42)
[2022-07-22] MEDS ORDERED: QUEtiapine 50 MG TAB PO SCH (22:00)
[2022-07-22] MEDS: HEPARIN SODIUM,PORCINE/PF 5,000 UNIT/0.5 ML SYRINGE SQ SCH ×2 (22:09→22:11)
--- NOTE | 2022-07-23 06:58 | XR ---
EXAMINATION TYPE: XR chest 2V DATE OF EXAM: 07/23/2022 6:45 AM COMPARISON: Chest radiographs from 07/22/2022 TECHNIQUE: XR chest 2V Frontal and lateral views of the chest. CLINICAL INDICATION:Male, 77 years old with history of cough; FINDINGS: Lungs/Pleura: There is no evidence of pleural effusion, focal consolidation, or pneumothorax. Pulmonary vascularity: Unremarkable. Heart/mediastinum: Cardiomediastinal silhouette is unremarkable. Atherosclerotic calcifications are seen in the aorta. Musculoskeletal: Multiple level degenerative disc disease changes seen throughout the spine. IMPRESSION: No acute cardiopulmonary disease/process. No change from prior examination.
[2022-07-23 08:54] LABS: African American GFR (CKD) 99.2 (60.0-200.0); Albumin 3.1 g/dL (3.8-4.9); Albumin/Globulin Ratio 1.55 (1.60-3.17); Anion Gap 6.4 mmol/L (10.00-18.00); BUN/Creat Ratio 35.38 Ratio (12.00-20.00); Blood Urea Nitrogen 28.3 mg/dL (9.0-27.0); Carbon Dioxide 29.6 mmol/L (20.0-27.5); Non-African American GFR(CKD) 85.6 (60.0-200.0); Potassium 3.6 mmol/L (3.5-5.5); Total Bilirubin 0.5 mg/dL (0.30-1.20); Total Protein 5.1 g/dL (6.2-8.2)
[2022-07-23] MEDS ORDERED: ASPIRIN 81 MG PO SCH (09:00)
[2022-07-23] MEDS ORDERED: CYANOCOBALAMIN 500 MCG TAB PO SCH (09:00)
[2022-07-23] MEDS ORDERED: CHOLECALCIFEROL 25 MCG (1000 IU) TABLET PO SCH (09:00)
[2022-07-23] MEDS ORDERED: lisinopriL 20 MG TAB PO SCH (09:00)
[2022-07-23] MEDS: HEPARIN SODIUM,PORCINE/PF 5,000 UNIT/0.5 ML SYRINGE SQ SCH (09:03)
[2022-07-23 09:08] VITALS: RESP 16
[2022-07-23] MEDS ORDERED: SODIUM CHLORIDE 0.9% 1,000 ML IV SCH (11:30)
--- NOTE | 2022-07-23 11:41 | P.CNNES ---
History of Present Illness Consult date: 07/23/22 Requesting physician: Royce Morales Reason for Consult: altered mental status History of Present Illness: This is a 77-year-old gentleman who presented from [facility] because of altered mental status. She is known to me since she was recently seen by me last on 07/14/2022 for altered mental status, gait disturbance and urinary incontinence and I felt probable pressure hydrocephalus as well as he has vitamin B12 deficiency which can cause pseudo dementia. He did have a lumbar puncture muscle no improvement in his symptoms. It seems that the patient has not been walking at the nursing facility and has been resistant care. He is only having coughing episodes that reported the nursing facility. I spoke with patient son and he stated it seems the patient has a bruise on the left lower extremity proximally from trauma/fall. As stated earlier, this recent hospital visit it was felt probable NPH. Patient had a lumbar puncture during the hospital visit but his gait did not improve and his confusion has not changed. She'll he had confusion during that pass hospital visit and it was felt due to delirium which resolved. Was recommended he follows up as an outpatient for further workup of probable normal pressure hydrocephalus. Patient had a routine EEG which was background slowing stress of a mild encephalopathy otherwise on no seizure or epileptiform or focal slowing. He had MRI of the brain and it's reported as ventricle prominence favor atrophy however consider normal pressure hydrocephalus. Please refer to my notes for further details. Some of the workup during his hospital visit consisted of: His AST is 151 and ALT 63. Stars Kovic to PCR was not detected. Influenza A/B and RSV is not detected. CT brain is reported as cerebral atrophy. Moderate hydrocephalus. No acute intracranial abnormality. No change. Review of Systems Review of system: The 12 point system was reviewed and apparent positive and negative per HPI. Past Medical History Past Medical History: Dementia, Hypertension Additional Past Medical History / Comment(s): Increased forgetfulness, urinary i ncontinence, covid and influenza about 3-5 weeks ago, encephalopathy, alzheimer's History of Any Multi-Drug Resistant Organisms: None Reported Past Surgical History: Joint Replacement Additional Past Surgical History / Comment(s): right knee replacement, Past Anesthesia/Blood Transfusion Reactions: No Reported Reaction Past Psychological History: No Psychological Hx Reported Smoking Status: Never smoker Past Alcohol Use History: None Reported Past Drug Use History: None Reported - Past Family History Mother Family Medical History: Dementia Father Family Medical History: Dementia Medications and Allergies Home Medications Medication Instructions Recorded Confirmed Type Aspirin EC [Ecotrin Low Dose] 81 mg PO DAILY 07/10/22 07/22/22 History Cholecalciferol [Vitamin D3 (25 25 mcg PO DAILY 07/10/22 07/22/22 History Mcg = 1000 Iu)] lisinopriL [Zestril] 20 mg PO DAILY 07/10/22 07/22/22 History Cyanocobalamin [Vitamin B-12] 1,000 mcg PO DAILY tab 07/17/22 07/22/22 Rx Melatonin 3 mg PO HS PRN tab 07/17/22 07/22/22 Rx QUEtiapine [SEROquel] 50 mg PO DIRECTED 07/22/22 07/22/22 History Allergies Allergy/AdvReac Type Severity Reaction Status Date / Time lorazepam [From Ativan] AdvReac Hallucinati Verified 07/22/22 18:31 ons Physical Examination - Vital Signs Vital Signs: Vital Signs Temp Pulse Pulse Resp BP BP BP 07/23/22 07:00 97.8 F 98 16 128/80 07/23/22 02:34 98.7 F 78 17 128/76 07/22/22 20:00 99.6 F 98 17 143/84 07/22/22 19:00 68 18 130/98 07/22/22 16:48 87 18 146/85 07/22/22 14:35 97.8 F 114 H 18 142/82 Pulse Ox 07/23/22 07:00 99 07/23/22 02:34 94 L 07/22/22 20:00 94 L 07/22/22 19:00 99 07/22/22 16:48 95 07/22/22 14:35 96 Intake and Output 07/22/22 07/23/22 07/23/22 22:59 06:59 14:59 Other: # Voids 0 1 # Bowel Movements 1 Weight 60.328 kg GENERAL: The patient is lying in bed and is not in acute distress. CHEST: The heart rate is regular rate rhythm. No murmurs to auscultation. LUNG: Clear to auscultation bilaterally no wheezing noted throughout. Not labored breathing. ABDOMEN/GI: Bowel sounds present in all 4 quadrants. No tenderness to palpation throughout. NEUROLOGICAL: Higher mental function: The patient is awake, alert, oriented to self and time. With options he stated he was in the hospital and correctly stated Hollie. He is slow responding to questions. Patient is following simple commands. No aphasia and no neglect. Cranial nerves: The pupils are round, equal and reactive to ligh. Visual thorpe are full to confrontation throughout. Extraocular movement is intact no nystagmus is noted. Facial sensation is normal to touch throughout. The facial strength is normal throughout. Hearing isvery hard of hearing. . Tongue is midline and moved [id number] without any difficulty. No dysarthria is noted. Shoulder shrug is normal bilaterally. Motor: The strength is limited because of cooperation but raised bilateral uppers above gravity equally. While he raised the right lower extremity without issues but left raised slowly and was limited because of pain (has bruise over the left proximal lower). Normal tone and bulk. Cerebellum: Normal finger to nose bilaterally. Sensation: Sensation is normal to touch throughout. Reflexes (right/left): 1+ throughout. Plantars are mute bilaterally. Results - Laboratory Findings CBC and BMP: 07/22/22 15:21 07/23/22 05:16 Abnormal Lab Findings: Abnormal Labs 07/22/22 07/22/22 07/22/22 15:10 15:21 15:21 RBC 4.10 L Hgb 12.2 L Hct 36.6 L Carbon Dioxide Anion Gap BUN BUN/Creatinine Ratio Glucose POC Glucose (mg/dL) 115 H AST ALT Total Protein Albumin Albumin/Globulin Ratio Urine Protein Trace H Urine Ketones Trace H 07/22/22 07/23/22 15:21 05:16 RBC Hgb Hct Carbon Dioxide 29.6 H Anion Gap 6.40 L BUN 35 H 28.3 H BUN/Creatinine Ratio 35.38 H Glucose 117 H POC Glucose (mg/dL) AST 151 H 127 H ALT 63 H 59 H Total Protein 6.2 L 5.1 L Albumin 3.4 L 3.1 L Albumin/Globulin Ratio 1.55 L Urine Protein Urine Ketones Assessment and Plan Assessment: Delirium 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 Patient had a lumbar puncture on this recent past visit but no improvement in his symptoms Also cognitive impairment/dementia due to vitamin B12 deficiency can cause pseudodementia. Cannot rule out dementia due to other degenerative disease. Vitamin B-12 deficiency Bilateral cataracts Severe hearing loss Plan: Patient had a detailed workup on this recent past visit. Please refer to my note on 07/14/2022 in which she had MRI the brain, lumbar puncture, EEG and lab workup. Recommend a neurological further workup for possible/probable normal pressure hydrocephalus is an outpatient if the family desires of pursuing. Also further dementia/neurospych evaluation as outpatient. For now I recommend avoiding RAIL BENDER shunt since he didn't have improvement on last visit after lumbar puncture. Recommend Seroquel 25 mg daily at bedtime if needed 50 mg daily at bedtime for psychosis/agitation. Avoid ativan since had worsening of agitation/psychosis and confusion on last visit. Continue vitamin B12 1000 g daily. Consulted PT and OT for gait evaluation There is no further neurological workup needed since had detailed recent evaluation. We'll defer the rest of the medical management the primary team Recommend the patient follow up with a neurologist as an outpatient within 1-2 weeks. The plan is discussed with his son (who is at bedside) and his nurse. Thank you for the consultation. Time with Patient: Greater than 30
--- NOTE | 2022-07-23 13:54 | P.HPIM ---
History of Present Illness 77-year-old male came in with the altered mental status although upon the discussing with family members patient's mental status appears to be at his baseline patient is alert and oriented 1-2 patient appears to have vascular dementia appears to be advanced from the history that was provided with the family members patient was falling more unable to participate in physical therapy. Patient also has mildly elevated AST and ALT patient doesn't have any fever patient is not delirious at this time patient went to status is at his baseline patient was evaluated by neurology patient had a recent hospitalization for altered mental status at the time there is a concern about a month normal pressure hydrocephalus because of which LP was done without any significant improvement in his symptoms of ataxia, urinary incontinence. Patient was referred to a neurologist as an outpatient. REVIEW OF SYSTEMS: All other review of systems are negative or unable to obtain PHYSICAL EXAMINATION: GENERAL: The patient is alert and oriented x1, not in any acute distress. Well developed, well nourished. HEENT: Pupils are round and equally reacting to light. EOMI. No scleral icterus. No conjunctival pallor. Normocephalic, atraumatic. No pharyngeal erythema. No thyromegaly. CARDIOVASCULAR: S1 and S2 present. No murmurs, rubs, or gallops. PULMONARY: Chest is clear to auscultation, no wheezing or crackles. ABDOMEN: Soft, nontender, nondistended, normoactive bowel sounds. No palpable organomegaly. MUSCULOSKELETAL: No joint swelling or deformity. EXTREMITIES: No cyanosis, clubbing, or pedal edema. NEUROLOGICAL: Gross neurological examination did not reveal any focal deficits. SKIN: No rashes. Assessment and plan -Altered mental status secondary to worsening dementia and his generalized weakness is a again secondary to dementia considering his frequent falls recently patient prognosis is poor and discussed regarding options of palliative care/hospice with the family members. Patient will still follow up with his neurologist as an outpatient -Cough there is no evidence of pneumonia next and-back pain secondary to chronic degenerative back disease -Hypertension Mild nonspecific elevation of liver enzymes which are getting better repeat liver enzymes can be done as an outpatient. Patient has advanced dementia, nothing much else can be offered here on this hospitalization patient will be discharged back to subacute rehabilitation.: Past Medical History Past Medical History: Dementia, Hypertension Additional Past Medical History / Comment(s): Increased forgetfulness, urinary incontinence, covid and influenza about 3-5 weeks ago, encephalopathy, alzheimer's History of Any Multi-Drug Resistant Organisms: None Reported Past Surgical History: Joint Replacement Additional Past Surgical History / Comment(s): right knee replacement, Past Anesthesia/Blood Transfusion Reactions: No Reported Reaction Past Psychological History: No Psychological Hx Reported Smoking Status: Never smoker Past Alcohol Use History: None Reported Past Drug Use History: None Reported - Past Family History Mother Family Medical History: Dementia Father Family Medical History: Dementia Medications and Allergies Home Medications Medication Instructions Recorded Confirmed Type Aspirin EC [Ecotrin Low Dose] 81 mg PO DAILY 07/10/22 07/22/22 History Cholecalciferol [Vitamin D3 (25 25 mcg PO DAILY 07/10/22 07/22/22 History Mcg = 1000 Iu)] lisinopriL [Zestril] 20 mg PO DAILY 07/10/22 07/22/22 History Cyanocobalamin [Vitamin B-12] 1,000 mcg PO DAILY tab 07/17/22 07/22/22 Rx Melatonin 3 mg PO HS PRN tab 07/17/22 07/22/22 Rx QUEtiapine [SEROquel] 50 mg PO DIRECTED 07/22/22 07/22/22 History Allergies Allergy/AdvReac Type Severity Reaction Status Date / Time lorazepam [From Ativan] AdvReac Hallucinati Verified 07/22/22 18:31 ons Physical Exam Vitals: Vital Signs Temp Pulse Pulse Resp BP BP BP 07/23/22 07:00 97.8 F 98 16 128/80 07/23/22 02:34 98.7 F 78 17 128/76 07/22/22 20:00 99.6 F 98 17 143/84 07/22/22 19:00 68 18 130/98 07/22/22 16:48 87 18 146/85 07/22/22 14:35 97.8 F 114 H 18 142/82 Pulse Ox 07/23/22 07:00 99 07/23/22 02:34 94 L 07/22/22 20:00 94 L 07/22/22 19:00 99 07/22/22 16:48 95 07/22/22 14:35 96 Intake and Output 07/22/22 07/23/22 07/23/22 22:59 06:59 14:59 Other: # Voids 0 1 1 # Bowel Movements 1 Weight 60.328 kg Results CBC & Chem 7: 07/22/22 15:21 07/23/22 05:16 Labs: Abnormal Lab Results - Last 24 Hours (Table) 07/22/22 07/22/22 07/22/22 Range/Units 15:10 15:21 15:21 RBC 4.10 L (4.30-5.90) m/uL Hgb 12.2 L (13.0-17.5) gm/dL Hct 36.6 L (39.0-53.0) % Carbon Dioxide (20.0-27.5) mmol/L Anion Gap (10.00-18.00) mmol/L BUN (9-20) mg/dL BUN/Creatinine Ratio (12.00-20.00) Ratio Glucose (74-99) mg/dL POC Glucose (mg/dL) 115 H (70-110) mg/dL AST (17-59) U/L ALT (4-49) U/L Total Protein (6.3-8.2) g/dL Albumin (3.5-5.0) g/dL Albumin/Globulin Ratio (1.60-3.17) g/dL Urine Protein Trace H (Negative) Urine Ketones Trace H (Negative) 07/22/22 07/23/22 Range/Units 15: 05:16 RBC (4.30-5.90) m/uL Hgb (13.0-17.5) gm/dL Hct (39.0-53.0) % Carbon Dioxide 29.6 H (20.0-27.5) mmol/L Anion Gap 6.40 L (10.00-18.00) mmol/L BUN 35 H 28.3 H (9-20) mg/dL BUN/Creatinine Ratio 35.38 H (12.00-20.00) Ratio Glucose 117 H (74-99) mg/dL POC Glucose (mg/dL) (70-110) mg/dL AST 151 H 127 H (17-59) U/L ALT 63 H 59 H (4-49) U/L Total Protein 6.2 L 5.1 L (6.3-8.2) g/dL Albumin 3.4 L 3.1 L (3.5-5.0) g/dL Albumin/Globulin Ratio 1.55 L (1.60-3.17) g/dL Urine Protein (Negative) Urine Ketones (Negative)
--- NOTE | 2022-07-23 13:55 | P.DS ---
Providers Date of admission: 07/22/22 19:27 Attending physician: Serenity Laboy Consults: 07/23/22 11:24 Consult Physician Routine Consulting Provider: Cheryl Vazquez Consult Reason/Comments: Hydrocephalus Do you want consulting provider notified?: Yes Primary care physician: Mitchell Ramírez [facility] Course: Please refer to my history of present illness for further details Patient Condition at Discharge: Poor Plan - Discharge Summary New Discharge Prescriptions: Continue Cholecalciferol [Vitamin D3 (25 Mcg = 1000 Iu)] 25 mcg PO DAILY Melatonin 3 mg PO HS PRN tab PRN Reason: Insomnia Cyanocobalamin [Vitamin B-12] 1,000 mcg PO DAILY tab lisinopriL [Zestril] 20 mg PO DAILY Aspirin EC [Ecotrin Low Dose] 81 mg PO DAILY QUEtiapine [SEROquel] 50 mg PO DIRECTED Discharge Medication List Aspirin EC [Ecotrin Low Dose] 81 mg PO DAILY 07/10/22 [History] Cholecalciferol [Vitamin D3 (25 Mcg = 1000 Iu)] 25 mcg PO DAILY 07/10/22 [History] lisinopriL [Zestril] 20 mg PO DAILY 07/10/22 [History] Cyanocobalamin [Vitamin B-12] 1,000 mcg PO DAILY tab 07/17/22 [Rx] Melatonin 3 mg PO HS PRN tab 07/17/22 [Rx] QUEtiapine [SEROquel] 50 mg PO DIRECTED 07/22/22 [History] Follow up Appointment(s)/Referral(s): Mitchell Ramírez DO [Primary Care Provider] - 3 Days Discharge Disposition: HOME SELF-CARE
[2022-07-23 15:52] VITALS: BP 106/61; PULSE 100; TEMP 98.1
== END 2022-07-23 16:32 ==
LOC: EC 14:31 → 6NMEDSUR 19:27
PROVIDERS: ADMIT Hospitalist; ATTEND Hospitalist
DX: G30.9 Alzheimer's disease, unspecified (principal); F02.80 Dementia in other diseases classified elsewhere, unspecified severity, without behavioral disturbance, psychotic disturbance, mood disturbance, and anxiety; E86.0 Dehydration; G91.9 Hydrocephalus, unspecified; R05.1 Acute cough; R62.7 Adult failure to thrive; E53.8 Deficiency of other specified B group vitamins; R74.01 Elevation of levels of liver transaminase levels; R26.9 Unspecified abnormalities of gait and mobility; R32 Unspecified urinary incontinence; S80.12XA Contusion of left lower leg, initial encounter; W19.XXXA Unspecified fall, initial encounter; H91.90 Unspecified hearing loss, unspecified ear; H26.9 Unspecified cataract; I10 Essential (primary) hypertension; Z20.822 Contact with and (suspected) exposure to COVID-19; Z79.82 Long term (current) use of aspirin; Z79.899 Other long term (current) drug therapy; Z88.8 Allergy status to other drugs, medicaments and biological substances; Z96.651 Presence of right artificial knee joint; Z86.16 Personal history of COVID-19; Z82.0 Family history of epilepsy and other diseases of the nervous system
CPT/HCPCS: 96372; 99285; 36415; 93005; 97162; 97167; 80053 ×2; 84484; 85025; 85610; 85730; 81003; 87040; 87636; 72100; 72170; 71046 ×2; 70450; G0378 ×2; J1644

== ENCOUNTER 2022-08-05 03:48 | Emergency (ER) | payer MEDICARE, OTHER ==
[2022-08-05 04:01] VITALS: RESP 16; TEMP 97.6
--- NOTE | 2022-08-05 05:01 | CT ---
EXAMINATION TYPE: CT brain carlo wo con DATE OF EXAM: 08/05/2022 COMPARISON: 07/22/2022 HISTORY: Fall CT DLP: 1339.2 mGycm Automated exposure control for dose reduction was used. Images of the brain and cervical spine obtained with no contrast. There is cerebral cortical atrophy. There is no mass effect normal and shift. No sign of intracranial hemorrhage. There is enlargement of the ventricles. Calvarium is intact. There is normal aeration of the mastoid sinuses. The cervical vertebra have normal alignment. There is degenerative spurring of the endplates througho ut the cervical spine. No compression fracture. There is mild cervical facet arthropathy. IMPRESSION: Multilevel spondylotic changes. Multilevel mild facet arthropathy. No cervical spine fracture. Cerebral atrophy and mild hydrocephalus. Brain unchanged compared to old exam. No acute intracranial abnormality.
--- NOTE | 2022-08-05 05:04 | XR ---
EXAMINATION TYPE: XR Hip Complete RT DATE OF EXAM: 08/05/2022 COMPARISON: NONE HISTORY: Pelvis x-ray 07/22/2022 TECHNIQUE: 2 view FINDINGS: Exam limited by the positioning. I see no definite femoral fracture. Hip joint space is chelo rly normal. Acetabulum is intact. IMPRESSION: No definite hip fracture seen.
[2022-08-05 05:27] VITALS: BP 117/61; PULSE 87
--- NOTE | 2022-08-05 05:38 | ED ---
Fall HPI - General Chief Complaint: Fall Stated Complaint: FALL Time Seen by Provider: 08/05/22 04:29 Source: EMS, RN notes reviewed, old records reviewed Mode of arrival: EMS Limitations: no limitations - History of Present Illness Initial Comments: This is a 69-year-old male presenting after fall. Patient is a mildly to moderately poor historian but he did have a fall from standing did hit his head and did have hip pain. Patient has no significant complaints here in the ER not requiring pain medication. 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 Fall Witnessed: yes, by family Place Fall Occurred: home Loss of Consciousness: none Prolonged Down Time?: no Symptoms Prior to Fall: none Location: head, pelvis Severity: moderate Severity scale (1-10): 4 Quality: sharp Context: tripped/slipped Associated Symptoms: denies - Related Data Home Medications Medication Instructions Recorded Confirmed Aspirin EC [Ecotrin Low Dose] 81 mg PO DAILY 07/10/22 07/22/22 Cholecalciferol [Vitamin D3 (25 25 mcg PO DAILY 07/10/22 07/22/22 Mcg = 1000 Iu)] lisinopriL [Zestril] 20 mg PO DAILY 07/10/22 07/22/22 QUEtiapine [SEROquel] 50 mg PO DIRECTED 07/22/22 07/22/22 Previous Rx's Medication Instructions Recorded Cyanocobalamin [Vitamin B-12] 1,000 mcg PO DAILY tab 07/17/22 Melatonin 3 mg PO HS PRN tab 07/17/22 Allergies Allergy/AdvReac Type Severity Reaction Status Date / Time lorazepam [From Ativan] AdvReac Hallucinati Verified 07/22/22 18:31 ons Review of Systems ROS Statement: Those systems with pertinent positive or pertinent negative responses have been documented in the HPI. ROS Other: All systems not noted in ROS Statement are negative. Past Medical History Past Medical History: Dementia, Hypertension Additional Past Medical History / Comment(s): Increased forgetfulness, urinary incontinence, covid and influenza about 3-5 weeks ago, encephalopathy, alzheimer's History of Any Multi-Drug Resistant Organisms: None Reported Past Surgical History: Joint Replacement Additional Past Surgical History / Comment(s): right knee replacement, Past Anesthesia/Blood Transfusion Reactions: No Reported Reaction Past Psychological History: No Psychological Hx Reported Smoking Status: Never smoker Past Alcohol Use History: None Reported Past Drug Use History: None Reported - Past Family History Mother Family Medical History: Dementia Father Family Medical History: Dementia General Exam Limitations: physical limitation General appearance: alert, in no apparent distress Head exam: Present: atraumatic, normocephalic, normal inspection Eye exam: Present: normal appearance, PERRL, EOMI. Absent: scleral icterus, conjunctival injection, periorbital swelling ENT exam: Present: normal exam, mucous membranes moist Neck exam: Present: normal inspection. Absent: tenderness, meningismus, l ymphadenopathy Respiratory exam: Present: normal lung sounds bilaterally. Absent: respiratory distress, wheezes, rales, rhonchi, stridor Cardiovascular Exam: Present: regular rate, normal rhythm, normal heart sounds. Absent: systolic murmur, diastolic murmur, rubs, gallop, clicks GI/Abdominal exam: Present: soft, normal bowel sounds. Absent: distended, tenderness, guarding, rebound, rigid Extremities exam: Present: normal inspection, full ROM, normal capillary refill. Absent: tenderness, pedal edema, joint swelling, calf tenderness Back exam: Present: normal inspection Neurological exam: Present: alert, oriented X3, CN II-XII intact Psychiatric exam: Present: normal affect, normal mood Skin exam: Present: warm, dry, intact, normal color. Absent: rash Course Vital Signs 08/05/22 08/05/22 03:55 05:00 Temperature 97.6 F Pulse Rate 99 87 Respiratory 16 16 Rate Blood Pressure 121/77 117/61 O2 Sat by Pulse 97 98 Oximetry - Reevaluation(s) Reevaluation #1: 08/05/22 07:13 Medical record is reviewed Reevaluation #2: 08/05/22 07:13 Patient's without significant complaint Reevaluation #3: 08/05/22 07:13 Patient informed results and questions are answered Reevaluation #4: 08/05/22 07:13 Differential Weakness: Hypoglycemia, shock, sepsis, hyponatremia, anemia, infection, DC, ETOH, adverse medicine reaction, overdose, stroke, this is not meant to be an all-inclusive list. Reevaluation #5: 08/05/22 07:13 Was pt. sent in by a medical professional or institution? @ -no Did you speak to anyone other than the patient for history? @ -no Did you review nursing and triage notes? @ -agree Were old charts reviewed? @ -no prior Differential Diagnosis? @ -no prior EKG interpreted by me (3pts min.)? @ -[none] X-rays interpreted by me (1pt min.)? @ -[none] CT interpreted by me (1pt min.)? @ -[none] U/S interpreted by me (1pt. min.)? @ -[none] What testing was considered but not performed? (CT, X-rays, U/S, labs)? Why? @ no What meds were considered but not given? Why? @ -[none] Did you discuss the management of the patient with other professionals? @ -no Did you reconcile home meds? @ -[none] Was smoking cessation discussed for >3mins.? @ -[none] Was critical care preformed (if so, how long)? @ -[none] Were there social determinants of health that impacted care today? How? (Homelessness, low income, unemployed, alcoholism, drug addiction, transportation, low edu. Level, literacy, decrease access to med. care, care home, rehab)? @ -no Was there de-escalation of care discussed even if they declined? (Discuss DNR or withdrawal of care, Hospice)? @ -no What co-morbidities impacted this encounter? (DM, HTN, Smoking, COPD, CAD, Cancer, CVA, Hep., AIDS, mental health diagnosis, sleep apnea, morbid obesity)? @ -no Was patient admitted / discharged? @ -dc ] Undiagnosed new problem with uncertain prognosis? @ -[none] Drug Therapy requiring intensive monitoring for toxicity (Heparin, Nitro, Insulin, Cardizem)? @ -[none] Were any procedures done? @ -[none] Diagnosis/symptom? @ -[default] Acute, or Chronic, or Acute on Chronic? @ -[default] Uncomplicated (without systemic symptoms) or Complicated (systemic symptoms)? @ -[default] Side effects of treatment? @ -[none] Exacerbation, Progression, or Severe Exacerbation] @ -[no] Poses a threat to life or bodily function? @ -[no] Medical Decision Making - Medical Decision Making 77 male to the emergency department for evaluation patient presents today for evaluation in regards to fall fall with hip pain did hit head. Negative significant acute disease. Patient can be discharged home - Radiology Data Radiology results: report reviewed (CT brain C-spine x-ray pelvis and hip is negative for acute disease), image reviewed Disposition Clinical Impression: Fall Disposition: HOME SELF-CARE Condition: Good Instructions (If sedation given, give patient instructions): Fall Prevention for Older Adults (ED) Is patient prescribed a controlled substance at d/c from ED?: No Referrals: Mitchell Ramírez DO [Primary Care Provider] - 1-2 days Time of Disposition: 05:40
== END 2022-08-05 06:20 | disposition home or self-care (01) ==
LOC: EC 03:48
DX: M25.559 Pain in unspecified hip (principal); I10 Essential (primary) hypertension; Z79.82 Long term (current) use of aspirin; Z88.8 Allergy status to other drugs, medicaments and biological substances; W18.30XA Fall on same level, unspecified, initial encounter
CPT/HCPCS: 70450; 72125; 73502; 99285